=== PATIENT | female | born 1935 | race Caucasian/White ===

== ENCOUNTER → 2017-04-26 | Outpatient (CLI) | payer OTHER ==
[2014-02-07 12:51] VITALS: BP 161/80
[~2017-04-26] MED LIST: NS 100 ML IV 100 ML IV ONE
[2017-04-26 13:00] LABS: CREATININE 0.95 mg/dL (0.55-1.02)
--- NOTE | 2017-04-26 16:39 | CT ---
HISTORY: Right upper quadrant pain Study: CT abdomen and pelvis with IV and oral contrast Comparison: None Technique: Multiple axial images of the abdomen and pelvis were obtained from the lung bases to the pubic symph ysis with the administration of IV contrast. Sagittal and coronal reformations were provided. Findings: There are tiny pleural effusions. There is a tiny pericardial effusion . There is a 2 x 1 centimet er left adrenal the liver spleen and pancreas and right adrenal gland arm unremarkable. There are nu merous small bilateral renal parapelvic cysts. nodule.. The gallbladder and appendix are surgically absent. There is no biliary dilatation.. No significant mesenteric lymphadenopathy or stranding can be observed. No free fluid or free air is seen within the abdomen. No bowel wall thickening or johana wel dilatation is present. There is mild sigmoid diverticular disease. The uterus is normal in size without demonstration of a mass. There is no adnexal mass.. The urinary bladder is unremarkable. T here is severe bilateral hip joint space narrowing with flattening of the femoral heads and severe o steophytes. There is severe degenerative changes of the upper lumbar spine. IMPRESSION: 1. Tiny pleural and pericardial effusions 2. 1 x 2 centimeter left adrenal nodule 3. Severe bilateral hip erosive osteoarthritis Reported By:
== END | disposition home or self-care (01) ==
LOC: RAD 12:28
PROVIDERS: ATTEND Internal Medicine
DX: R10.11 Right upper quadrant pain (principal); K59.09 Other constipation; Z87.19 Personal history of other diseases of the digestive system; J90 Pleural effusion, not elsewhere classified; M16.0 Bilateral primary osteoarthritis of hip; E27.8 Other specified disorders of adrenal gland
CPT/HCPCS: 36415; 74177; 82565; 84520; A4222

== ENCOUNTER → 2017-07-29 | Outpatient (CLI) | payer OTHER ==
[2014-02-07 12:51] VITALS: BP 161/80
[2017-07-29 14:05] LABS: BILIRUBIN,URINE NEGATIVE (NEGATIVE); BLOOD/HEMOGLOBIN,URINE NEGATIVE (NEGATIVE); GLUCOSE, URINE NEGATIVE (NEGATIVE); KETONES,URINE NEGATIVE (NEGATIVE); LEUKOCYTE ESTERASE ,URINE NEGATIVE (NEGATIVE); NITRITES,URINE NEGATIVE (NEGATIVE); PROTEIN,URINE NEGATIVE (NEGATIVE); UROBILINOGEN,URINE NORMAL (NORMAL)
[2017-07-29 14:19] LABS: APPEARANCE,URINE CLEAR (CLEAR); BACTERIA,URINE TRACE /HPF (NEGATIVE); COLOR,URINE YELLOW (YELLOW); RBC,URINE 0-2 /HPF (NEGATIVE); SQUAMOUS EPITHELIAL CELL,UR FEW /HPF (NEGATIVE)
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
== END | disposition home or self-care (01) ==
LOC: RAD 13:45
PROVIDERS: ATTEND Nurse Practitioner
DX: R51 Headache (principal); V89.2XXA Person injured in unspecified motor-vehicle accident, traffic, initial encounter; N39.0 Urinary tract infection, site not specified
CPT/HCPCS: 70450; 81001

== ENCOUNTER → 2017-09-10 | Outpatient (CLI) | payer OTHER ==
[2014-02-07 12:51] VITALS: BP 161/80
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
== END ==
LOC: RAD 15:02
PROVIDERS: ATTEND Internal Medicine
DX: R51 Headache (principal)
CPT/HCPCS: 70450

== ENCOUNTER 2022-06-22 13:17 | Inpatient (IN) ==
--- NOTE | 2022-06-22 13:57 | DR.URIAD ---
HPI Time Seen Time Seen by Provider: 06/22/22 13:57 PCP Primary Care Physician: ALFONSO Complaint Chief Complaint:: EMS STATES PATIENT C/O C/C/C AND COUGHING UP BLOOD. PCP TOLD PATIENT SHE NEED TO BE EVALUATED AND HAVE CHEST XRAY. COVID-19 Coronavirus risk:travel/contact w/high risk person: No Has patient experienced Coronavirus symptoms: No Source History Provided: EMS Mode of Arrival Mode of Arrival: EMS Timing Onset of Chief Complaint: 06/19/22 PMH PMH Past Medical History: Yes Past Medical History: CHF, GERD and Hypertension Past Surgical History: Yes Surgical History: Appendectomy and Cholecystectomy Family History History of Family Medical Conditions: Yes Family Medical History: Cancer Social History Does any household member use tobacco: No Alcohol Use: None Do you use any recreational Drugs:: No Lives With: Family Lives Where: Home Travel Risk Coronavirus risk:travel/contact w/high risk person: No Has patient experienced Coronavirus symptoms: No Infectious screening In the last 2 months have you had wt loss of >10#?: NO Have you had fever, night sweats or hemotysis?: No Have you traveled outside the country in the last 6 months?: No Isolation: Standard PE Vital Signs Vitals: Temperature 99.1 F Pulse Rate 67 Respiratory Rate 27 Blood Pressure [Right Arm] 165/70 Blood Pressure 103/58 O2 Sat by Pulse Oximetry 98 ROR Labs Reviewed Result Diagrams: 06/22/22 15:15 06/22/22 15:15 Laboratory: WBC 10.2 X10^3/uL (3.6-10.0) H 06/22/22 15:15 RBC 3.80 X10^6/uL (3.5-5.4) 06/22/22 15:15 Hgb 12.3 g/dL (12.0-16.0) 06/22/22 15:15 Hct 36.2 % (36.0-47.0) 06/22/22 15:15 MCV 95.3 fL (80.0-100.0) 06/22/22 15:15 MCH 32.2 pg (27.0-34.0) 06/22/22 15:15 MCHC 33.8 g/dL (33.0-35.0) 06/22/22 15:15 RDW 13.4 % (11.6-16.5) 06/22/22 15:15 Plt Count 353 X10^3/uL (150.0-450.0) 06/22/22 15:15 MPV 7.5 fL (7.4-11.0) 06/22/22 15:15 Neut % (Auto) 73.9 % (42.0-75.0) 06/22/22 15:15 Lymph % (Auto) 17.5 % (21.0-51.0) L 06/22/22 15:15 Monona % (Auto) 7.3 % (0.0-13.0) 06/22/22 15:15 Eos % (Auto) 0.6 % (0.9-2.9) L 06/22/22 15:15 Baso % (Auto) 0.7 % (0.2-1.0) 06/22/22 15:15 Neut # (Auto) 7.6 x10^3/uL (2.2-4.8) H 06/22/22 15:15 Lymph # (Auto) 1.8 X10^3/uL (1.3-2.9) 06/22/22 15:15 Monona # (Auto) 0.7 x10^3/uL (0.3-0.8) 06/22/22 15:15 Eos # (Auto) 0.1 x10^3/uL (0.0-0.2) 06/22/22 15:15 Baso # (Auto) 0.1 X10^3/uL (0.0-0.1) 06/22/22 15:15 Absolute Nucleated RBC 0.1 /100WBC 06/22/22 15:15 D-Dimer 1.25 ug/ml (0.0-0.57) H 06/22/22 15:15 Sodium 138 mmol/L (136-145) 06/22/22 15:15 Corrected Sodium 138 mmol/L (136-145) 06/22/22 15:15 Potassium 4.7 mmol/L (3.5-5.1) 06/22/22 15:15 Chloride 101 mmol/L (98-107) 06/22/22 15:15 Carbon Dioxide 30.9 mmol/L (21-32) 06/22/22 15:15 BUN 12 mg/dL (7-18) 06/22/22 15:15 Creatinine 0.93 mg/dL (0.55-1.02) 06/22/22 15:15 Est GFR (MDRD) Af Amer > 60 (>60) 06/22/22 15:15 Est GFR (MDRD) Non-Af > 60 (>60) 06/22/22 15:15 Glucose 114 mg/dL (65-99) H 06/22/22 15:15 Calcium 8.0 mg/dL (8.5-10.1) L 06/22/22 15:15 Corrected Calcium 8.8 mg/dL (8.5-10.1) 06/22/22 15:15 Total Bilirubin 0.20 mg/dL (0.2-1.0) 06/22/22 15:15 AST 17 Units/L (15-37) 06/22/22 15:15 ALT 17 Units/L (12-78) 06/22/22 15:15 Alkaline Phosphatase 98 Units/L (46-116) 06/22/22 15:15 Creatine Kinase 19 Units/L (26-192) L 06/22/22 15:15 Troponin I High Sens 9.3 ng/L (4.0-60.0) 06/22/22 15:15 B-Natriuretic Peptide 90.4 pg/mL (0-79) H 06/22/22 15:15 Total Protein 6.5 g/dL (6.4-8.2) 06/22/22 15:15 Albumin 3.0 g/dL (3.4-5.0) L 06/22/22 15:15 Globulin 3.5 g/dL (2.5-4.5) 06/22/22 15:15 Albumin/Globulin Ratio 0.9 Ratio (1.1-2.1) L 06/22/22 15:15 Opioid Opioid Risk Tool Age (Adria box if 16-45): No History of Preadolescent Sexual Abuse: No Total: 0 Total Score Risk Category: Low Risk Copyright: Lisandro KHAN predicting aberrant behaviors Discharge Plan Discharge Plan Patient Disposition: HOME, SELF-CARE Condition: Stable Prescriptions: No Action furosemide 40 mg tablet 40 mg PO DAILY Label Comments: TAKE ONE TABLET BY MOUTH DAILY Rx Instructions: PT states 20mg 3x week - MWF polyethylene glycol 3350 [Miralax] 17 gram Powder In Packet 17 g PO DAILY hydrocodone-acetaminophen 5-325 mg tablet 1 tab PO QID Label Comments: TAKE ONE TABLET BY MOUTH FOUR TIMES DAILY NEEDED FOR PAIN ondansetron HCl 4 mg tablet 4 mg PO DIRECTED PRN Label Comments: TAKE 1 TABLET BY MOUTH EVERY 6 TO 8 HOURS NEEDED NAUSEA AND VOMITING clonazepam 0.5 mg tablet 0.5 mg PO TID Label Comments: TAKE 1 TABLET BY MOUTH THREE TIMES DAILY NEEDED FOR ANXIETY spironolactone 25 mg tablet 25 mg PO DAILY Label Comments: TAKE ONE TABLET BY MOUTH DAILY Rx Instructions: Pt states 12.5mg 3x a week - MWF ascorbic acid (vitamin C) [Vitamin C] 500 mg Tablet 500 mg PO DAILY pantoprazole 40 mg tablet,delayed release (DR/EC) 40 mg PO DAILY Label Comments: TAKE 1 TABLET BY MOUTH ONCE DAILY (TAKE 30 MINUTES BEFORE BREAKFAST) montelukast 10 mg tablet 10 mg PO DAILY Label Comments: TAKE ONE TABLET BY MOUTH ONCE DAILY ALLERGIES aspirin 81 mg Tablet 81 mg PO DAILY memantine 5 mg tablet 5 mg PO DAILY Label Comments: TAKE ONE TABLET BY MOUTH DAILY metoprolol tartrate 25 mg tablet 25 mg PO BID Label Comments: TAKE 1 TABLET BY MOUTH TWICE DAILY cholecalciferol (vitamin D3) [Vitamin D3] 25 mcg (1,000 unit) Tablet 25 mcg PO DAILY cyanocobalamin (vitamin B-12) [Vitamin B-12] 1,000 mcg Tablet 1,000 mcg PO DAILY Health Concerns: Post Hospitalization: new medications and changes needed to prevent readmission or further decline. Pt educated and given instructions on all concerns. Plan of Treatment: Continue with present treatment and follow up plan. Pt is to keep follow up appointment as instructed and take medications as ordered. Follow ups/Referrals Follow ups/Referrals: Jose Evans [Primary Care Provider] - 3 days Instructions Stand Alone Forms: Precautions for COVID19, [facility], Patient Portal, Social Distancing
[2022-06-22] MEDS ORDERED: NORCO 10/325 TAB PO ONE (14:36)
[2022-06-22] MEDS ORDERED: NORCO 10/325 TAB ONE (14:37)
--- NOTE | 2022-06-22 15:20 | RAD ---
CHEST, 1 VIEWHISTORY: COUGH, CONGESTOINStudy: Single view of the chest.Comparison:NoneFindings:Cardiomegaly bilateral interstitial prominence, possible early alveolar infiltrates. No focal consolidations, pleural effusions or pneumothorax. Osseous structures demonstrate no acute abnormality.IMPRESSION:1. Bilateral interstitial prominence and early alveolar infiltrates. Findings may represent atypical infection, including viral etiologies.Electronically signed by: BRYNN LAGUNAS (Jun 22, 2022 15:18:15)
[2022-06-22 15:29] LABS: BASOPHILS # (AUTO) 0.1 X10^3/uL (0.0-0.1); BASOPHILS % (AUTO) 0.7 % (0.2-1.0); EOSINOPHILS # (AUTO) 0.1 x10^3/uL (0.0-0.2); EOSINOPHILS % (AUTO) 0.6 % (0.9-2.9); HEMATOCRIT 36.2 % (36.0-47.0); HEMOGLOBIN 12.3 g/dL (12.0-16.0); LYMPHOCYTES # (AUTO) 1.8 X10^3/uL (1.3-2.9); LYMPHOCYTES % (AUTO) 17.5 % (21.0-51.0); MEAN CORPUSCULAR HEMOGLOBIN 32.2 pg (27.0-34.0); MEAN CORPUSCULAR HGB CONC 33.8 g/dL (33.0-35.0); MEAN CORPUSCULAR VOLUME 95.3 fL (80.0-100.0); MEAN PLATELET VOLUME 7.5 fL (7.4-11.0); MONOCYTES # (AUTO) 0.7 x10^3/uL (0.3-0.8); MONOCYTES % (AUTO) 7.3 % (0.0-13.0); NEUTROPHILS # (AUTO) 7.6 x10^3/uL (2.2-4.8); NEUTROPHILS % (AUTO) 73.9 % (42.0-75.0); RED CELL DISTRIBUTION WIDTH 13.4 % (11.6-16.5); WHITE BLOOD COUNT 10.2 X10^3/uL (3.6-10.0)
[2022-06-22 15:51] LABS: ALANINE AMINOTRANSFERASE 17 Units/L (12-78); ALKALINE PHOSPHATASE 98 Units/L (46-116); ASPARTATE AMINO TRANSFERASE 17 Units/L (15-37); BLOOD UREA NITROGEN 12 mg/dL (7-18); CARBON DIOXIDE 30.9 mmol/L (21-32); CHLORIDE 101 mmol/L (98-107); COR CA(FOR HYPOALB) 8.8 mg/dL (8.5-10.1); COR NA(FOR HYPERGLY) 138 mmol/L (136-145); CREATININE 0.93 mg/dL (0.55-1.02); SODIUM 138 mmol/L (136-145); TOTAL PROTEIN 6.5 g/dL (6.4-8.2); eGFR NON BLACK RACES > 60 (>60)
[2022-06-22] MEDS ORDERED: KLONOPIN TAB 0.5 MG PO ONE (16:47)
[2022-06-22] MEDS ORDERED: KLONOPIN TAB 0.5 MG ONE (16:49)
--- NOTE | 2022-06-22 17:56 | CT ---
EXAM: CT ABDOMEN AND PELVIS WITHOUT INTRAVENOUS CONTRASTHISTORY: Pain. Coughing up blood.TECHNIQUE: Spiral axial CT images are obtained through the abdomen and pelvis without the administration of intravenous contrast. Additional coronal and sagittal reformatted images are reconstructed.DOSIMETRY: Total DLP 1229.3 mGycm; CTDI 22.7 mGyCOMPARISON: CT abdomen and pelvis dated December 22, 2019.FINDINGS:GASTROINTESTINAL TRACT: There is diffuse distal ileal and colonic diverticulosis, especially severe in the descending colon and sigmoid regions, without CT evidence for acute diverticulitis. No evidence for bowel herniation, bowel obstruction, appendicitis or colitis.GENITOURINARY SYSTEM: There is an approximately 3.6 mm nonobstructing right middle pole renal calculus. The kidneys are unremarkable. There is no ureteral calculus or stigmata of obstructive uropathy. The urinary bladder is grossly unremarkable for a non-dedicated exam.REPRODUCTIVE SYSTEM: The uterus and adnexa appear grossly unremarkable for a CT scan. Consider follow-up dedicated imaging as clinically warranted.CT ABDOMEN: Status post cholecystectomy. Aortoiliac atherosclerotic disease, without aneurysm formation.The liver, spleen, pancreas, adrenal glands and inferior vena cava are within normal limits for a noncontrast CT scan. There is no intra-abdominal or retroperitoneal lymphadenopathy, free fluid, or free air seen. No abdominal herniation is noted.CT PELVIS: No pelvic sidewall or inguinal lymphadenopathy is seen. No inguinal herniation is noted. No free fluid or free air is seen.BONES AND JOINTS: Severe multilevel DDD is seen throughout the distal thoracic and lumbar spine. There is severe osteoarthritis of both hips. Status post ORIF of the left hip/femur with medullary aleksander placement. There is flattening/remodeling of the weightbearing aspect of the left hip in keeping with chronic sequela of AVN in the appropriate clinical setting.LUNG BASES: There is stable cardiomegaly with four-chamber enlargement. There is a stable moderate pericardial effusion (measuring up to 3 cm thick posteriorly). There is severe coronary atherosclerosis (LAD). There is interval appearance of an approximately 3.4 cm x 3.1 cm consolidative masslike lesion in the anterior lateral inferior right middle lobe; DDx includes primary lung neoplasm; cannot rule out focal pneumonia. There is interval appearance of multiple innumerable metastatic nodules scattered throughout the bilateral lower lung goldberg. There is interval appearance of a small loculated left pleural effusion with compressive/consolidative left basilar atelectasis.IMPRESSION:1. Stable cardiomegaly with four-chamber enlargement.2. Stable moderate pericardial effusion (measuring up to 3 cm thick posteriorly).3. Severe coronary atherosclerosis (LAD).4. Interval appearance of an approximately 3.4 cm x 3.1 cm consolidative masslike lesion in the anterior lateral inferior right middle lobe; DDx includes primary lung neoplasm; cannot rule out focal pneumonia.5. Interval appearance of multiple innumerable metastatic nodules scattered throughout the bilateral lower lung goldberg.6. Interval appearance of a small loculated left pleural effusion (possible malignant effusion) with compressive/consolidative left basilar atelectasis.7. Diffuse distal ileal and colonic diverticulosis, especially severe in the descending colon and sigmoid regions, without CT evidence for acute diverticulitis.8. No evidence for bowel herniation, bowel obstruction, appendicitis or colitis.9. Approximately 3.6 mm nonobstructing right middle pole renal calculus; no ureteral stones or obstructive uropathy seen bilateral.10. No free fluid, free air or lymphadenopathy seen.11. Severe multilevel DDD is seen throughout the distal thoracic and lumbar spine.12. Severe osteoarthritis of both hips. Status post ORIF of the left hip/femur with medullary aleksander placement.13. Flattening/remodeling of the weightbearing aspect of the left hip in keeping with chronic sequela of AVN in the appropriate clinical setting.Electronically signed by: Carola Cardona (Jun 22, 2022 17:54:36)
[2022-06-22 18:54] LABS: BILIRUBIN,URINE NEGATIVE (NEGATIVE); BLOOD/HEMOGLOBIN,URINE 2+ (NEGATIVE); GLUCOSE, URINE NEGATIVE (NEGATIVE); KETONES,URINE NEGATIVE (NEGATIVE); LEUKOCYTE ESTERASE ,URINE 3+ (NEGATIVE); NITRITES,URINE NEGATIVE (NEGATIVE); PH,URINE 6.5 (5.0 - 8.0); PROTEIN,URINE NEGATIVE (NEGATIVE); UROBILINOGEN,URINE NORMAL (NORMAL)
[2022-06-22] MEDS ORDERED: PHARMACY CONSULT - LOVENOX XX SCH (19:00)
[2022-06-22 19:02] LABS: APPEARANCE,URINE HAZY (CLEAR); COLOR,URINE PALE YELLOW (YELLOW)
[2022-06-22 19:03] LABS: BACTERIA,URINE 1+ /HPF (NEGATIVE); SQUAMOUS EPITHELIAL CELL,UR RARE /HPF (NEGATIVE)
[2022-06-22 19:06] VITALS: BMI 36.5
[2022-06-22] MEDS: LOVENOX INJ 40 MG SYR SC SCH (20:38)
[2022-06-22] MEDS ORDERED: MAALOX or MYLANTA ONE (21:48)
[2022-06-22] MEDS: MAALOX or MYLANTA PO PRN (21:52)
[2022-06-22] MEDS ORDERED: ROCEPHIN VIAL 1 GRAM ONE (21:54)
[2022-06-22] MEDS ORDERED: ROCEPHIN VIAL 1 GRAM 1 G in NS 100 ML IV + SPIKE MINIBAG* 100 ML IV SCH (22:00)
[2022-06-22] MEDS: NORCO 10/325 TAB PO PRN (22:35)
[2022-06-23 02:39] LABS: BASOPHILS # (AUTO) 0.1 X10^3/uL (0.0-0.1); EOSINOPHILS # (AUTO) 0.1 x10^3/uL (0.0-0.2); EOSINOPHILS % (AUTO) 0.9 % (0.9-2.9); HEMATOCRIT 33.9 % (36.0-47.0); HEMOGLOBIN 11.7 g/dL (12.0-16.0); LYMPHOCYTES # (AUTO) 1.7 X10^3/uL (1.3-2.9); LYMPHOCYTES % (AUTO) 17.8 % (21.0-51.0); MEAN CORPUSCULAR HEMOGLOBIN 32.6 pg (27.0-34.0); MEAN CORPUSCULAR HGB CONC 34.6 g/dL (33.0-35.0); MEAN CORPUSCULAR VOLUME 94.2 fL (80.0-100.0); MEAN PLATELET VOLUME 7.4 fL (7.4-11.0); MONOCYTES # (AUTO) 0.9 x10^3/uL (0.3-0.8); MONOCYTES % (AUTO) 9.3 % (0.0-13.0); NEUTROPHILS # (AUTO) 6.8 x10^3/uL (2.2-4.8); RED CELL DISTRIBUTION WIDTH 13.6 % (11.6-16.5); WHITE BLOOD COUNT 9.6 X10^3/uL (3.6-10.0)
[2022-06-23 02:51] LABS: ALANINE AMINOTRANSFERASE 15 Units/L (12-78); ALBUMIN 2.7 g/dL (3.4-5.0); ALKALINE PHOSPHATASE 93 Units/L (46-116); ASPARTATE AMINO TRANSFERASE 16 Units/L (15-37); BLOOD UREA NITROGEN 11 mg/dL (7-18); CALCIUM 7.8 mg/dL (8.5-10.1); CARBON DIOXIDE 30.7 mmol/L (21-32); CHLORIDE 103 mmol/L (98-107); COR CA(FOR HYPOALB) 8.8 mg/dL (8.5-10.1); COR NA(FOR HYPERGLY) 139 mmol/L (136-145); CREATININE 0.84 mg/dL (0.55-1.02); SODIUM 138 mmol/L (136-145); eGFR NON BLACK RACES > 60 (>60)
[2022-06-23] MEDS: NORCO 10/325 TAB PO PRN ×3 (04:43→20:20)
[2022-06-23] MEDS ORDERED: PREPARATION H OINT ONE (05:30)
[2022-06-23] MEDS: PREPARATION H OINT RECTAL PRN ×2 (05:48→15:05)
--- NOTE | 2022-06-23 07:15 | RAD ---
HISTORYChest painSTUDYChest AP [id number]/22/2022 chest x-ray and CT abdomen pelvisFINDINGSThe heart remains markedly enlarged. Some of the cardiomegaly is due to pericardial effusion better visualized on the recent CT abdomen pelvis. No congestive heart failure is noted. There is new alveolar infiltrate peripherally in the right lung base most consistent with pneumonia. There is a left pleural effusion present. Bony thorax is unremarkable.IMPRESSIONNew peripheral right basilar alveolar lung infiltrate most consistent with pneumoniaLeft pleural effusion unchangedCardiomegaly partially due to a pericardial effusion which is better demonstrated on the recent CT abdomen pelvis. No congestive heart failure identifiedElectronically signed by: MARYBETH SMITH (Jun 23, 2022 07:13:43)
[2022-06-23] MEDS: MAALOX or MYLANTA PO PRN ×2 (09:18→21:54)
[2022-06-23] MEDS: LOVENOX INJ 40 MG SYR SC SCH (09:22)
[2022-06-23] MEDS: PULMICORT NEB TX 0.5 MG NEB SCH ×2 (09:30→20:37)
[2022-06-23] MEDS: LASIX IVP SCH (10:56)
[2022-06-23] MEDS: VITAMIN B-12 PO SCH (10:56)
[2022-06-23] MEDS: ASPIRIN EC 81 MG PO SCH (10:56)
[2022-06-23] MEDS: VITAMIN D3 25 mcg (1,000 UNITS) PO SCH (10:56)
[2022-06-23] MEDS: KLONOPIN TAB 0.5 MG PO SCH ×3 (10:56→20:10)
[2022-06-23] MEDS: VITAMIN C PO SCH (10:57)
[2022-06-23] MEDS: XOPENEX 1.25 MG/3 ML NEBULE NEB SCH ×2 (11:52→16:50)
[2022-06-23] MEDS ORDERED: TUCKS MEDICATED PAD TOP PRN (14:00)
[2022-06-23] MEDS ORDERED: NS 250 ML IV 250 ML IV ONE (14:58)
[2022-06-23] MEDS: ROCEPHIN VIAL 1 GRAM 1 G in NS 100 ML IV 100 ML IV SCH (15:00)
--- NOTE | 2022-06-23 15:05 | CT ---
HISTORYSUSPECTED METASTATIC DISEASESTUDYCHEST WITH [id number]/21/2020TECHNIQUEAxial images through the chest were performed with contrast. CT scan was performed following ALARA (As low as Reasonably Achievable).Coronal and Sagittal reformatted images were performed.FINDINGSThe thyroid gland is no enlarged. There is no axillary adenopathy, there is and small left pleural effusion, there is also and small pericardial effusion. No mediastinal adenopathyThere is again seen a left adrenal nodule measuring approximately 2.8 x 1.3 centimeter nonspecific, no right adrenal masses. Status post cholecystectomy, some parapelvic cysts in the right kidney.There is fatty changes of the pancreas, there are some low attenuation areas in the duodenum could represent fluid from peristalsis.The spleen is no enlarged. No focal enhancing lesion in the liver is seenthe ascending aorta measures approximately 3.2 centimetersThere is atelectasis at the left lower lobe. There are multiple new lung nodules, the largest is seen in the right lower lobe laterally measuring approximately 3.4 centimeters, in the left the largest is seen in the superior segment of the left lower lobe measuring approximately 1.1 centimeters. There are bilateral multiple lung nodules ranging from 6 to 4 millimeters consistent with metastatic disease.Bone windows no evidence of aggressive bone lesions, no acute fractures, there is multilevel degenerative disc disease.IMPRESSIONMultiple bilateral lung nodules with the largest in the right lower lobe consider lung metastasisSmall left effusion. Trace pericardial effusionStable left adrenal nodule.Electronically signed by: Li Velasquez (Jun 23, 2022 15:03:30)
[2022-06-23] MEDS ORDERED: SALINE 0.9% 3 ML NEB TX ONE (20:14)
[2022-06-23] MEDS: SINGULAIR TAB 10 MG PO SCH (21:54)
[2022-06-23] MEDS: MIRALAX POWDER (1 DOSE 17 G) PO SCH (21:54)
[2022-06-24] MEDS: XOPENEX 1.25 MG/3 ML NEBULE NEB SCH ×5 (00:58→18:24)
[2022-06-24 05:16] LABS: BASOPHILS # (AUTO) 0.1 X10^3/uL (0.0-0.1); BASOPHILS % (AUTO) 1.1 % (0.2-1.0); EOSINOPHILS # (AUTO) 0.1 x10^3/uL (0.0-0.2); EOSINOPHILS % (AUTO) 1.1 % (0.9-2.9); HEMATOCRIT 34.7 % (36.0-47.0); HEMOGLOBIN 11.8 g/dL (12.0-16.0); LYMPHOCYTES # (AUTO) 1.6 X10^3/uL (1.3-2.9); LYMPHOCYTES % (AUTO) 17.9 % (21.0-51.0); MEAN CORPUSCULAR HEMOGLOBIN 32.2 pg (27.0-34.0); MEAN CORPUSCULAR VOLUME 94.5 fL (80.0-100.0); MEAN PLATELET VOLUME 7.7 fL (7.4-11.0); MONOCYTES # (AUTO) 0.9 x10^3/uL (0.3-0.8); NEUTROPHILS # (AUTO) 6.4 x10^3/uL (2.2-4.8); NEUTROPHILS % (AUTO) 69.9 % (42.0-75.0); RED BLOOD COUNT 3.67 X10^6/uL (3.5-5.4); RED CELL DISTRIBUTION WIDTH 13.8 % (11.6-16.5); WHITE BLOOD COUNT 9.2 X10^3/uL (3.6-10.0)
[2022-06-24 05:24] LABS: ALANINE AMINOTRANSFERASE 14 Units/L (12-78); ALBUMIN 2.9 g/dL (3.4-5.0); ALKALINE PHOSPHATASE 97 Units/L (46-116); ASPARTATE AMINO TRANSFERASE 17 Units/L (15-37); BLOOD UREA NITROGEN 9 mg/dL (7-18); CALCIUM 8.1 mg/dL (8.5-10.1); CARBON DIOXIDE 31.6 mmol/L (21-32); CHLORIDE 100 mmol/L (98-107); COR NA(FOR HYPERGLY) 137 mmol/L (136-145); SODIUM 137 mmol/L (136-145); TOTAL PROTEIN 6.5 g/dL (6.4-8.2); eGFR NON BLACK RACES > 60 (>60)
--- NOTE | 2022-06-24 06:19 | RAD ---
HISTORYShortness of breath, generalized weaknessSTUDYChest AP [id number]/23/2022 chest x-ray and CT chestFINDINGSHeart remains markedly enlarged. This is partially due to pericardial effusion which is visible on the recent chest CT. No congestive heart failure is noted. There is a density peripherally in the right lower lobe felt to represent a lung infiltrate on the prior examination. It now has a more masslike appearance and proved to be a 3.4 cm mass on the recent chest CT. Multiple other smaller pulmonary nodules were visualized on the chest CT which are not visible on plain film. Metastatic disease is likely. Follow-up should be with CT. Bony thorax is unremarkable.IMPRESSIONCardiomegaly without congestive heart failure. The cardiomegaly is in part due to a pericardial effusion which was visualized on recent CT.Previously noted peripheral right basilar lung density which was felt on the prior examination to represent infiltrate has a more masslike appearance and corresponds to a 3.4 cm mass visible on chest CTThe multiple bilateral smaller pulmonary nodules visible on CT are not yet visible on plain film. Follow-up should be with CT.Electronically signed by: MARYBETH SMITH (Jun 24, 2022 06:17:28)
[2022-06-24] MEDS: KLONOPIN TAB 0.5 MG PO SCH ×3 (06:30→21:40)
[2022-06-24] MEDS ORDERED: MILK OF MAGNESIA PO PRN (08:34)
[2022-06-24] MEDS ORDERED: ZOFRAN INJ 4 MG VIAL IVP PRN (08:34)
[2022-06-24] MEDS: NORCO 10/325 TAB PO PRN ×2 (08:50→21:40)
[2022-06-24] MEDS: PULMICORT NEB TX 0.5 MG NEB SCH ×2 (08:55→20:00)
[2022-06-24] MEDS ORDERED: ALDACTONE TAB 25 MG PO SCH (09:00)
[2022-06-24] MEDS: ASPIRIN EC 81 MG PO SCH (09:08)
[2022-06-24] MEDS: PROTONIX TAB 40 MG PO SCH (09:09)
[2022-06-24] MEDS: LOVENOX INJ 40 MG SYR SC SCH (09:09)
[2022-06-24] MEDS: VITAMIN D3 25 mcg (1,000 UNITS) PO SCH (09:09)
[2022-06-24] MEDS: VITAMIN C PO SCH (09:09)
[2022-06-24] MEDS: COLACE CAP 100 MG PO PRN (09:10)
[2022-06-24] MEDS: MAALOX or MYLANTA PO PRN ×2 (09:10→21:54)
[2022-06-24] MEDS: VITAMIN B-12 PO SCH (09:18)
[2022-06-24] MEDS: LASIX IVP SCH (09:41)
--- NOTE | 2022-06-24 10:53 | DR.H&P ---
H&P - History & Physical for Day of: H&P Date: 06/22/22 - Chief Complaint Chief Complaint: COUGH, CONGESTION, COUGHING UP BLOOD, WEAKNESS, EPIGASTRIC PAIN - History of Present Illness History of Present Illness: IS A 87 YEAR OLD PATIENT OF OURS. SHE PRESENTED TO THE ER VIA EMS WITH COMPLAINTS OF COUGH AND CONGESTION. SHE REPORTS THAT SHE STARTED COUGHING UP BLOOD ONE DAY PRIOR. SHE ALSO REPORTS EPIGASTRIC ABDOMINAL PAIN. SHE HAS BEEN TAKING ROBITUSSIN DM WITHOUT IMPROVEMENT IN SYMPTOMS. HER PMH INCLUDES: CHF, GERD, HTN, APPENDECTOMY, AND CHOLECYSTECTOMY. ON ARRIVAL, HER VITALS WERE 99.1-58-22-99%-137/64. LABS WERE OBTAINED. WBC 10.2, RBC 3.80, HGB 12.3, HCT 36.2, D-DIMER 1.25, SODIUM 138, POTASSIUM 4.7, CHLORIDE 101, CARBON DIOXIDE 30.9, BUN 12, CREATININE 0.93, GLUCOSE 114, CALCIUM 8.0, AST 17, ALT 17, ALK PHOS 98, CREATINE KINASE 19, TROPONIN 9.3, BNP 90.4, TOTAL PROTEIN 6.5, ALBUMIN 3.0. URINALYSIS WAS OBTAINED AND REVEALED: WBC 30-50, RBC 3-5, LEUKOCYTES 3+, BACTERIA 1+, BLOOD 2+. URINE AND SPUTUM CULTURES WERE SET UP. COVID, INFLUENZA, AND RSV WAS NEGATIVE. A CHEST XRAY WAS OBTAINED AND REVEALED: 1. Bilateral interstitial prominence and early alveolar infiltrates. Findings may represent atypical infection, including viral etiologies. EKG REVEALED: SINUS BRADYCARDIA WITH HR 58. AN ABDOMEN/PELVIS CT WITHOUT CONTRAST WAS OBTAINED. IT REVEALED: 1. Stable cardiomegaly with four-chamber enlargement. 2. Stable moderate pericardial effusion (measuring up to 3 cm thick posteriorly). 3. Severe coronary atherosclerosis (LAD). 4. Interval appearance of an approximately 3.4 cm x 3.1 cm consolidative masslike lesion in the anterior lateral inferior right middle lobe; DDx includes primary lung neoplasm; cannot rule out focal pneumonia. 5. Interval appearance of multiple innumerable metastatic nodules scattered throughout the bilateral lower lung goldberg. 6. Interval appearance of a small loculated left pleural effusion (possible malignant effusion) with compressive/consolidative left basilar atelectasis. 7. Diffuse distal ileal and colonic diverticulosis, especially severe in the descending colon and sigmoid regions, without CT evidence for acute diverticulitis. 8. No evidence for bowel herniation, bowel obstruction, appendicitis or colitis. 9. Approximately 3.6 mm nonobstructing right middle pole renal calculus; no ureteral stones or obstructive uropathy seen bilateral. 10. No free fluid, free air or lymphadenopathy seen. 11. Severe multilevel DDD is seen throughout the distal thoracic and lumbar spine. 12. Severe osteoarthritis of both hips. Status post ORIF of the left hip/femur with medullary aleksander placement. 13. Flattening/remodeling of the weightbearing aspect of the left hip in keeping with chronic sequela of AVN in the appropriate clinical setting. IN THE ER, SHE WAS GIVEN ROCEPHIN 1G IV X 1 DOSE, KLONOPIN 0.5MG PO X 1, NORCO 10/325MG PO X 1 DOSE. SHE WAS ADMITTED TO THE HOSPTAIL FOR FURTHER EVALUATION AND TREATMENT OF PNEUMONIA, LUNG MASS, AND URINARY TRACT INFECTION. SHE WAS STARTED ON ROCEPHIN 1G IV DAILY, PULMICORT NEBS BID, XOPENEX NEBS Q6H, LOVENOX 40MG SC DAILY, ZOFRAN 4MG IV Q6H, MAALOX 30ML PO Q4H PRN, COLACE 200MG PO Q12H PRN, MILK OF MAGNESIA 30ML PO Q12H PRN, AND HIS HOME MEDICATIONS WERE RESUMED. WE WILL OBTAIN A CHEST CT WITH CONTRAST TO GET A BETTER LOOK AT THE LUNG NODULES. OTHERWISE, WE WILL FOLLOW-UP WITH AM LABS AND CONTINUE TO MONITOR. TIME SPENT ON CLINICAL ASSESSMENT, REVIWING LABS AND IMAGING, DECISION MAKING, AND DOCUMENTATION GREATER THAN 75 MINUTES. - Past Medical History Past Medical History: Hypertension, GERD, CHF - Past Surgical History Surgical History: Appendectomy, Cholecystectomy - Family History Family Medical History: Cancer - Social History Does patient currently use any type of tobacco product: No Have you used tobacco products in the last 12 months: No Type of Tobacco Use: None Does any household member use tobacco: No Alcohol Use: None Drug Use: None - Medications Home Medications: ciprofloxacin [From Cipro] Allergy (Verified 04/10/21 12:24) codeine Allergy (Verified 04/10/21 12:24) doxycycline Allergy (Verified 04/10/21 12:24) promethazine [From Phenergan] Allergy (Verified 04/10/21 12:24) Sulfa (Sulfonamide Antibiotics) [SULFA] Allergy (Verified 04/10/21 12:24) CONTINUE taking the following medications hydrocodone 10 mg-acetaminophen 325 mg tablet 1 tab PO QID pain 06/22/22 [History] pantoprazole 20 mg tablet,delayed release (Protonix) 10 mg PO DAILY 06/22/22 [History] spironolactone 25 mg tablet (Aldactone) 12.5 mg PO DIRECTED 06/22/22 [History] - Review of Systems Constitutional: Weakness Eyes: No Symptoms Reported ENT: No Symptoms Reported Respiratory: Cough, Shortness of Breath, Hemoptysis, SOB with Excertion Cardiovascular: No Symptoms Reported Gastrointestinal: Nausea, Abdominal Pain Genitourinary: No Symptoms Reported Musculoskeletal: No Symptoms Reported Skin: No Symptoms Reported Neurological: Weakness - Physical Exam Vital Signs: Temperature 98.3 F Pulse Rate 100 Respiratory Rate 47 Blood Pressure [Right Arm] 165/70 Blood Pressure 155/75 O2 Sat by Pulse Oximetry 99 Oriented: Normal Eyes: Normal Ear: Normal Nose: Normal Throat: Normal Respiratory: Diminished Throughout Cardiovascular: Bradycardia : Normal Auscultation: Bowel Sounds: Normal Palpation: Normal Tenderness: Normal Skin: Normal Musculoskeletal: Normal Psychiatric: Normal Mood Description: Calm Affect: Normal Speech Pattern: Clear - Assessment/Plan (1) Pneumonia Qualifiers: Laterality: bilateral Lung location: unspecified part of lung Status: Acute Plan: ADMIT, ROCEPHIN 1G IV DAILY, PULMICORT NEBS BID, XOPENEX NEBS Q6H, LOVENOX 40MG SC DAILY, ZOFRAN 4MG IV Q6H, MAALOX 30ML PO Q4H PRN, COLACE 200MG PO Q12H PRN, MILK OF MAGNESIA 30ML PO Q12H PRN, AND HIS HOME MEDICATIONS WERE RESUMED. OBTAIN CHEST CT WITH CONTRAST (2) Lung nodules Status: Acute (3) Urinary tract infection Qualifiers: Urinary tract infection type: acute cystitis Hematuria presence: with hematuria Qualified Code(s): N30.01 - Acute cystitis with hematuria Status: Acute - Allergies Allergies/Adverse Reactions: Allergies Allergy/AdvReac Type Severity Reaction Status Date / Time ciprofloxacin [From Cipro] Allergy Verified 04/10/21 12:24 codeine Allergy Verified 04/10/21 12:24 doxycycline Allergy Verified 04/10/21 12:24 promethazine [From Phenergan] Allergy Verified 04/10/21 12:24 Sulfa (Sulfonamide Allergy Verified 04/10/21 12:24 Antibiotics) [SULFA]
--- NOTE | 2022-06-24 12:42 | CT ---
CT head without contrastIndication: Altered mental status. History metastatic disease.TECHNIQUEAxial images from the skullbase to the vertex without contrast. Coronal and sagittal reformats provided.COMPARISONChest CT from June 23, [address] abdomen and pelvis from June 22, 2022.FINDINGSScattered hyperdense foci seen throughout the brain are most compatible with metastatic disease, largest in the right occipital lobe with surrounding mild vasogenic edema measuring 1.3 x 1.5 cm on axial image 15. Vague hypodensity in the left temporal lobe/basal ganglia measures 1.1 cm in maximum dimension on axial image 16, near the caudate nucleus. Left temporoparietal hyperintensities are noted on axial image 23, measuring 5 mm and axial image 25 measuring 6 mm. The right frontoparietal lesion measures 9 mm on axial image 25.There is no extra-axial fluid collection. There is mild atrophy and microangiopathy.No osseous lesions seen. Visualized paranasal sinuses and mastoid air cells are clearIMPRESSION1. Scattered bilateral cerebral hyperdensities, compatible with hyperdense metastases or hemorrhagic metastatic disease. Recommend MR brain follow-up with and without contrast to further evaluate.2. Cerebral atrophy and microangiopathy.Electronically signed by: KELSY AMAYA (Jun 24, 2022 12:40:44)
[2022-06-24] MEDS: ROCEPHIN VIAL 1 GRAM 1 G in NS 100 ML IV 100 ML IV SCH (13:51)
[2022-06-24] MEDS: SINGULAIR TAB 10 MG PO SCH (21:40)
[2022-06-24] MEDS: MIRALAX POWDER (1 DOSE 17 G) PO SCH (21:53)
[2022-06-25] MEDS: XOPENEX 1.25 MG/3 ML NEBULE NEB SCH ×4 (00:15→17:02)
[2022-06-25] MEDS: MAALOX or MYLANTA PO PRN ×2 (02:31→20:15)
[2022-06-25] MEDS: PREPARATION H OINT RECTAL PRN (02:31)
[2022-06-25 05:32] LABS: BASOPHILS # (AUTO) 0.1 X10^3/uL (0.0-0.1); BASOPHILS % (AUTO) 0.5 % (0.2-1.0); EOSINOPHILS % (AUTO) 0.4 % (0.9-2.9); HEMATOCRIT 33.6 % (36.0-47.0); HEMOGLOBIN 11.6 g/dL (12.0-16.0); LYMPHOCYTES # (AUTO) 1.2 X10^3/uL (1.3-2.9); LYMPHOCYTES % (AUTO) 11.4 % (21.0-51.0); MEAN CORPUSCULAR HEMOGLOBIN 32.3 pg (27.0-34.0); MEAN CORPUSCULAR HGB CONC 34.4 g/dL (33.0-35.0); MEAN CORPUSCULAR VOLUME 93.9 fL (80.0-100.0); MEAN PLATELET VOLUME 7.3 fL (7.4-11.0); MONOCYTES % (AUTO) 9.5 % (0.0-13.0); NEUTROPHILS # (AUTO) 7.9 x10^3/uL (2.2-4.8); NEUTROPHILS % (AUTO) 78.2 % (42.0-75.0); RED BLOOD COUNT 3.58 X10^6/uL (3.5-5.4); RED CELL DISTRIBUTION WIDTH 13.8 % (11.6-16.5); WHITE BLOOD COUNT 10.1 X10^3/uL (3.6-10.0)
[2022-06-25 05:44] LABS: ALANINE AMINOTRANSFERASE 13 Units/L (12-78); ALBUMIN 2.8 g/dL (3.4-5.0); ALKALINE PHOSPHATASE 95 Units/L (46-116); ASPARTATE AMINO TRANSFERASE 19 Units/L (15-37); BLOOD UREA NITROGEN 6 mg/dL (7-18); CARBON DIOXIDE 33.7 mmol/L (21-32); CHLORIDE 98 mmol/L (98-107); COR NA(FOR HYPERGLY) 135 mmol/L (136-145); CREATININE 0.84 mg/dL (0.55-1.02); SODIUM 134 mmol/L (136-145); TOTAL PROTEIN 6.4 g/dL (6.4-8.2); eGFR NON BLACK RACES > 60 (>60)
[2022-06-25] MEDS: NORCO 10/325 TAB PO PRN ×3 (06:08→20:14)
[2022-06-25] MEDS: KLONOPIN TAB 0.5 MG PO SCH ×3 (06:08→21:00)
[2022-06-25] MEDS: ASPIRIN EC 81 MG PO SCH (07:59)
[2022-06-25] MEDS: LASIX IVP SCH (07:59)
[2022-06-25] MEDS: PROTONIX TAB 40 MG PO SCH (08:00)
[2022-06-25] MEDS: LOVENOX INJ 40 MG SYR SC SCH (08:00)
[2022-06-25] MEDS: VITAMIN C PO SCH (08:00)
[2022-06-25] MEDS: VITAMIN B-12 PO SCH (08:00)
[2022-06-25] MEDS: VITAMIN D3 25 mcg (1,000 UNITS) PO SCH (08:01)
--- NOTE | 2022-06-25 08:09 | RAD ---
HISTORYCHEST PAIN; SOBSTUDYCHEST, 1 [id number] mass in the lower lateral right lung measures roughly 5 cm by radiography. Appears slightly smaller on the prior CT.Small left pleural effusion is present associated with atelectasis. I do not believe these are changed from the CT 06/23/2022.Upper lungs clear. No pneumothorax or new finding.Cardiomegaly is present.There are degenerative changes in the left shoulder. [EKG leads are noted. ]IMPRESSION1. No short interval changeElectronically signed by: Murray Sims (Jun 25, 2022 08:07:57)
[2022-06-25] MEDS: PULMICORT NEB TX 0.5 MG NEB SCH ×2 (08:38→21:00)
[2022-06-25] MEDS ORDERED: TORADOL 30 MG VIAL IVP PRN (11:58)
--- NOTE | 2022-06-25 13:41 | PCM.PROG ---
Progress Note - Progress Note for Day of Date of Exam: 06/24/22 - Subjective Subjective: IS CURRENTLY BEING TREATED FOR PNEUMONIA, UTI, AND MULTIPLE LUNG NODULES. SHE HAS A PMH OF CHF, GERD, KRISTIN, AND HTN. TODAY, SHE IS ALERT, LYING IN BED ON MORNING ROUNDS. SHE CONTINUES WITH COMPLAINTS OF A COUGH AND GENERALIZED WEAKNESS. ON EXAMINATION, HEART IS REGULAR IN RATE AND RHYTHM. BILATERAL LUNGS ARE NOTED WITH DIMINISHED LUNG SOUNDS THROUGHOUT. ABDOMEN IS ROUND, SOFT, AND NON-TENDER WITH NORMAL BOWEL SOUNDS NOTED IN ALL QUADRANTS. TRACE LOWER EXTREMITY EDEMA NOTED. HER VITALS THIS MORNING ARE: 98.7-91-21-100%-155/75. SHE IS CURRENTLY UTILIZING OXYGEN VIA NASAL CANNULA AT 2 LPM. LABS WERE OBTAINED THIS MORNING. WBC 9.2, RBC 3.67, HGB 11.8, HCT 34.7, PLT COUNT 316, SODIUM 137, POTASSIUM 4.1, BUN 9, CREATININE 0.90, GLUCOSE 111, CALCIUM 8.1, AST 17, ALT 14, ALK PHOS 97, TOTAL PROTEIN 6.5, ALBUMIN 2.9. URINE AND SPUTUM CULTURES ARE PENDING. A CHEST CT WITH CONTRAST WAS OBTAINED YESTERDAY. IT REVEALED: Multiple bilateral lung nodules with the largest in the right lower lobe consider lung metastasis. Small left effusion. Trace pericardial effusion. Stable left adrenal nodule. A CHEST XRAY WAS REPEATED THIS MORNING AND REVEALED: Cardiomegaly without congestive heart failure. The cardiomegaly is in part due to a pericardial effusion which was visualized on recent CT. Previously noted peripheral right basilar lung density which was felt on the prior examination to represent infiltrate has a more masslike appearance and corresponds to a 3.4 cm mass visible on chest CT. The multiple bilateral smaller pulmonary nodules visible on CT are not yet visible on plain film. SHE IS CURRENTLY RECEIVING ROCEPHIN 1G IV DAILY, PULMICORT NEBS BID, XOPENEX NEBS Q6H, LOVENOX 40MG SC DAILY, ZOFRAN 4MG IV Q6H, MAALOX 30ML PO Q4H PRN, COLACE 200MG PO Q12H PRN, MILK OF MAGNESIA 30ML PO Q12H PRN, AND HIS HOME MEDICATIONS WERE RESUMED. WE SPOKE WITH PATIENTS FAMILY MEMBERS AT LENGTH REGARDING THE CT FINDINGS. TODAY, WE WILL OBTAIN A BRAIN CT TO RULE OUT METS TO BRAIN. OTHERWISE, WE WILL CONTINUE WITH CURRENT PLAN OF CARE TODAY. WE WILL FOLLOW-UP WITH AM LABS AND CONTINUE TO MONITOR. TIME SPENT ON CLINICAL ASSESSMENT, REVIWING LABS AND IMAGING, DECISION MAKING, AND DOCUMENTATION GREATER THAN 45 MINUTES. - Past Medical Family Social History Past Med/Fam/Surg Hx: No changes since H&P Allergies: Allergies ciprofloxacin [From Cipro] Allergy (Verified 04/10/21 12:24) codeine Allergy (Verified 04/10/21 12:24) doxycycline Allergy (Verified 04/10/21 12:24) promethazine [From Phenergan] Allergy (Verified 04/10/21 12:24) Sulfa (Sulfonamide Antibiotics) [SULFA] Allergy (Verified 04/10/21 12:24) - Review of Systems ROS: No change since H&P - Vital Signs and I&O's Vital Signs: Temperature 98.2 F Pulse Rate 87 Respiratory Rate 22 Blood Pressure [Right Arm] 165/70 Blood Pressure 135/60 O2 Sat by Pulse Oximetry 100 Intake and Output: Intake & Output 06/23/22 06/24/22 06/25/22 06/26/22 11:59 11:59 11:59 11:59 Intake Total 1210 / 1210 930 / 930 1532 / 1532 Output Total 500 / 500 1850 / 1850 1920 / 1920 Balance 710 / 710 -920 / -920 -388 / -388 - Physical Exam Oriented: Normal Eyes: Normal Ear: Normal Nose: Normal Throat: Normal Respiratory: Generalized, Diminished Cardiovascular: Normal : Normal Auscultation: Bowel Sounds: Normal Palpation: Normal Tenderness: Normal Skin: Normal Musculoskeletal: Normal Psychiatric: Normal Mood Description: Calm Affect: Normal Speech Pattern: Clear - Laboratory and Diagnostics Result Diagrams: 06/25/22 05:05 06/25/22 05:05 Labs: 06/23/22 10:25 Sputum - Expectorated Sputum Sputum Culture - Final 06/23/22 10:25 Sputum - Expectorated Sputum - Final 06/22/22 18:35 Urine,Catheterized Urine Culture - Final Escherichia Coli Laboratory WBC 10.1 X10^3/uL (3.6-10.0) H 06/25/22 05:05 RBC 3.58 X10^6/uL (3.5-5.4) 06/25/22 05:05 Hgb 11.6 g/dL (12.0-16.0) L 06/25/22 05:05 Hct 33.6 % (36.0-47.0) L 06/25/22 05:05 MCV 93.9 fL (80.0-100.0) 06/25/22 05:05 MCH 32.3 pg (27.0-34.0) 06/25/22 05:05 MCHC 34.4 g/dL (33.0-35.0) 06/25/22 05:05 RDW 13.8 % (11.6-16.5) 06/25/22 05:05 Plt Count 288 X10^3/uL (150.0-450.0) 06/25/22 05:05 MPV 7.3 fL (7.4-11.0) L 06/25/22 05:05 Neut % (Auto) 78.2 % (42.0-75.0) H 06/25/22 05:05 Lymph % (Auto) 11.4 % (21.0-51.0) L 06/25/22 05:05 [place] % (Auto) 9.5 % (0.0-13.0) 06/25/22 05:05 Eos % (Auto) 0.4 % (0.9-2.9) L 06/25/22 05:05 Baso % (Auto) 0.5 % (0.2-1.0) 06/25/22 05:05 Neut # (Auto) 7.9 x10^3/uL (2.2-4.8) H 06/25/22 05:05 Lymph # (Auto) 1.2 X10^3/uL (1.3-2.9) L 06/25/22 05:05 [place] # (Auto) 1.0 x10^3/uL (0.3-0.8) H 06/25/22 05:05 Eos # (Auto) 0.0 x10^3/uL (0.0-0.2) 06/25/22 05:05 Baso # (Auto) 0.1 X10^3/uL (0.0-0.1) 06/25/22 05:05 Absolute Nucleated RBC 0.0 /100WBC 06/25/22 05:05 D-Dimer 1.25 ug/ml (0.0-0.57) H 06/22/22 15:15 Sodium 134 mmol/L (136-145) L 06/25/22 05:05 Corrected Sodium 135 mmol/L (136-145) L 06/25/22 05:05 Potassium 4.1 mmol/L (3.5-5.1) 06/25/22 05:05 Chloride 98 mmol/L (98-107) 06/25/22 05:05 Carbon Dioxide 33.7 mmol/L (21-32) H 06/25/22 05:05 BUN 6 mg/dL (7-18) L 06/25/22 05:05 Creatinine 0.84 mg/dL (0.55-1.02) 06/25/22 05:05 Est GFR (MDRD) Af Amer > 60 (>60) 06/25/22 05:05 Est GFR (MDRD) Non-Af > 60 (>60) 06/25/22 05:05 Glucose 135 mg/dL (65-99) H 06/25/22 05:05 Calcium 8.0 mg/dL (8.5-10.1) L 06/25/22 05:05 Corrected Calcium 9.0 mg/dL (8.5-10.1) 06/25/22 05:05 Total Bilirubin 0.30 mg/dL (0.2-1.0) 06/25/22 05:05 AST 19 Units/L (15-37) 06/25/22 05:05 ALT 13 Units/L (12-78) 06/25/22 05:05 Alkaline Phosphatase 95 Units/L (46-116) 06/25/22 05:05 Creatine Kinase 16 Units/L (26-192) L 06/23/22 02:24 Troponin I High Sens 9.0 ng/L (4.0-60.0) 06/23/22 02:24 B-Natriuretic Peptide 90.4 pg/mL (0-79) H 06/22/22 15:15 Total Protein 6.4 g/dL (6.4-8.2) 06/25/22 05:05 Albumin 2.8 g/dL (3.4-5.0) L 06/25/22 05:05 Globulin 3.6 g/dL (2.5-4.5) 06/25/22 05:05 Albumin/Globulin Ratio 0.8 Ratio (1.1-2.1) L 06/25/22 05:05 Specimen Type Catherized urine 06/22/22 18:35 Urine Color Pale yellow (YELLOW) 06/22/22 18:35 Urine Appearance Hazy (CLEAR) 06/22/22 18:35 Urine pH 6.5 (5.0 - 8.0) 06/22/22 18:35 Ur Specific [place] 1.010 (1.000-1.030) 06/22/22 18:35 Urine Protein Negative (NEGATIVE) 06/22/22 18:35 Urine Glucose (UA) Negative (NEGATIVE) 06/22/22 18:35 Urine Ketones Negative (NEGATIVE) 06/22/22 18:35 Urine Blood 2+ (NEGATIVE) 06/22/22 18:35 Urine Nitrite Negative (NEGATIVE) 06/22/22 18:35 Urine Bilirubin Negative (NEGATIVE) 06/22/22 18:35 Urine Urobilinogen Normal (NORMAL) 06/22/22 18:35 Ur Leukocyte Esterase 3+ (NEGATIVE) 06/22/22 18:35 Urine RBC 3-5 /HPF (0-3) A 06/22/22 18:35 Urine WBC 30-50 /HPF (0-5) A 06/22/22 18:35 Ur Squamous Epith Cells Rare /HPF (NEGATIVE) 06/22/22 18:35 Urine Bacteria 1+ /HPF (NEGATIVE) 06/22/22 18:35 Urine Mucus Few /HPF (NEGATIVE) 06/22/22 18:35 Ur Culture Indicated? Yes/culture set up 06/22/22 18:35 SARS-CoV-2 (PCR) Negative (NEGATIVE) 06/22/22 16:44 Influenza Type A (PCR) Negative (NEGATIVE) 06/22/22 16:44 Influenza Type B (PCR) Negative (NEGATIVE) 06/22/22 16:44 RSV (PCR) Negative (NEGATIVE) 06/22/22 16:44 - Plan (1) Pneumonia Status: Acute Qualifiers: Laterality: bilateral Lung location: unspecified part of lung Plan: ROCEPHIN 1G IV DAILY, PULMICORT NEBS BID, XOPENEX NEBS Q6H, LOVENOX 40MG SC DAILY, ZOFRAN 4MG IV Q6H, MAALOX 30ML PO Q4H PRN, COLACE 200MG PO Q12H PRN, MILK OF MAGNESIA 30ML PO Q12H PRN, AND HIS HOME MEDICATIONS WERE RESUMED. OBTAIN BRAIN CT (2) Lung nodules Status: Acute (3) Urinary tract infection Status: Acute Qualifiers: Urinary tract infection type: acute cystitis Hematuria presence: with hematuria Qualified Code(s): N30.01 - Acute cystitis with hematuria (4) Hypertension Status: Chronic Qualifiers: Hypertension type: primary hypertension Qualified Code(s): I10 - Essential (primary) hypertension (5) KRISTIN (generalized anxiety disorder) Status: Chronic (6) CHF (congestive heart failure) Status: Chronic Qualifiers: Heart failure type: unspecified Heart failure chronicity: chronic Qualified Code(s): I50.9 - Heart failure, unspecified
[2022-06-25] MEDS: ROCEPHIN VIAL 1 GRAM 1 G in NS 100 ML IV 100 ML IV SCH (14:42)
[2022-06-25] MEDS: MIRALAX POWDER (1 DOSE 17 G) PO SCH (20:09)
[2022-06-25] MEDS: SINGULAIR TAB 10 MG PO SCH (20:14)
[2022-06-26] MEDS: XOPENEX 1.25 MG/3 ML NEBULE NEB SCH ×4 (00:33→17:11)
[2022-06-26] MEDS: KLONOPIN TAB 0.5 MG PO SCH ×3 (05:23→21:03)
[2022-06-26 05:47] LABS: BASOPHILS # (AUTO) 0.1 X10^3/uL (0.0-0.1); BASOPHILS % (AUTO) 1.2 % (0.2-1.0); EOSINOPHILS # (AUTO) 0.2 x10^3/uL (0.0-0.2); EOSINOPHILS % (AUTO) 2.2 % (0.9-2.9); HEMATOCRIT 33.6 % (36.0-47.0); HEMOGLOBIN 11.6 g/dL (12.0-16.0); LYMPHOCYTES # (AUTO) 1.7 X10^3/uL (1.3-2.9); MEAN CORPUSCULAR HEMOGLOBIN 32.6 pg (27.0-34.0); MEAN CORPUSCULAR HGB CONC 34.5 g/dL (33.0-35.0); MEAN CORPUSCULAR VOLUME 94.6 fL (80.0-100.0); MEAN PLATELET VOLUME 7.4 fL (7.4-11.0); MONOCYTES # (AUTO) 0.8 x10^3/uL (0.3-0.8); MONOCYTES % (AUTO) 10.8 % (0.0-13.0); NEUTROPHILS # (AUTO) 4.9 x10^3/uL (2.2-4.8); NEUTROPHILS % (AUTO) 63.8 % (42.0-75.0); RED BLOOD COUNT 3.56 X10^6/uL (3.5-5.4); RED CELL DISTRIBUTION WIDTH 13.9 % (11.6-16.5); WHITE BLOOD COUNT 7.7 X10^3/uL (3.6-10.0)
[2022-06-26 06:05] LABS: ALANINE AMINOTRANSFERASE 15 Units/L (12-78); ALBUMIN 2.9 g/dL (3.4-5.0); ALKALINE PHOSPHATASE 93 Units/L (46-116); ASPARTATE AMINO TRANSFERASE 22 Units/L (15-37); BLOOD UREA NITROGEN 8 mg/dL (7-18); CHLORIDE 95 mmol/L (98-107); COR CA(FOR HYPOALB) 8.9 mg/dL (8.5-10.1); CREATINE KINASE 44 Units/L (26-192); CREATININE 0.99 mg/dL (0.55-1.02); SODIUM 133 mmol/L (136-145); TOTAL PROTEIN 6.6 g/dL (6.4-8.2); eGFR NON BLACK RACES 56 (>60)
--- NOTE | 2022-06-26 06:08 | RAD ---
HISTORYShortness of breathSTUDYChest AP [id number]/2022FINDINGSHear t remains enlarged. No congestive heart failure is noted. Right basilar lung mass is unchanged. No definite acute infiltrates are identified. Left pleural effusion is unchanged. Bony thorax is unremarkable.IMPRESSIONNo change cardiomegaly without congestive heart failureNo change right lung massNo change left pleural effusionElectronically signed by: MARYBETH SMITH (Jun 26, 2022 06:06:58)
[2022-06-26] MEDS: VITAMIN C PO SCH (08:04)
[2022-06-26] MEDS: PROTONIX TAB 40 MG PO SCH (08:04)
[2022-06-26] MEDS: VITAMIN B-12 PO SCH (08:04)
[2022-06-26] MEDS: ASPIRIN EC 81 MG PO SCH (08:04)
[2022-06-26] MEDS: NORCO 10/325 TAB PO PRN ×2 (08:05→17:30)
[2022-06-26] MEDS: LASIX IVP SCH (08:05)
[2022-06-26] MEDS: LOVENOX INJ 40 MG SYR SC SCH (08:06)
[2022-06-26] MEDS: VITAMIN D3 25 mcg (1,000 UNITS) PO SCH (08:19)
[2022-06-26] MEDS: PULMICORT NEB TX 0.5 MG NEB SCH ×2 (08:45→21:00)
[2022-06-26 08:57] LABS: CRYPTOSPORIDIUM PARVUM ANTIGEN NEGATIVE (NEGATIVE); GIARDIA LAMBLIA ANTIGEN NEGATIVE (NEGATIVE)
--- NOTE | 2022-06-26 10:22 | PCM.PROG ---
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 SHE HAS A PMH OF CHF, GERD, KRISTIN, AND HTN. TODAY, SHE IS ALERT, LYING IN BED ON MORNING ROUNDS. SHE CONTINUES WITH COMPLAINTS OF A COUGH, GENERALIZED WEAKNESS, AND GENERALIZED PAIN. ON EXAMINATION, HEART IS REGULAR IN RATE AND RHYTHM. BILATERAL LUNGS ARE NOTED WITH DIMINISHED LUNG SOUNDS THROUGHOUT. ABDOMEN IS ROUND, SOFT, AND NON- TENDER WITH NORMAL BOWEL SOUNDS NOTED IN ALL QUADRANTS. TRACE LOWER EXTREMITY EDEMA NOTED. HER VITALS THIS MORNING ARE: 98.5-89-22-100%-144/61. SHE IS CURRENTLY UTILIZING OXYGEN VIA NASAL CANNULA AT 2 LPM. LABS WERE OBTAINED THIS MORNING. WBC 10.1, RBC 3.58, HGB 11.6, HCT 33.6, SODIUM 134, POTASSIUM 4.1, CHLORIDE 98, CARBON DIOXIDE 33.7, BUN 6, CREATININE 0.84, BUN 6, CREATININE 0.84, GLUCOSE 135, CALCIUM 8.0, AST 19, ALT 13, ALK PHOS 95, TOTAL PROTEIN 6.4, ALBUMIN 2.8. URINE CULTURE IS POSITIVE FOR GROWTH OF E.COLI. SPUTUM CULTURE IS PENDING. A CHEST XRAY WAS REPEATED THIS MORNING. IT REVEALED: Lung mass in the lower lateral right lung measures roughly 5 cm by radiography. Appears slightly smaller on the prior CT. Small left pleural effusion is present associated with atelectasis. I do not believe these are changed from the CT 06/23/2022. Upper lungs clear. No pneumothorax or new finding. Cardiomegaly is present. There are degenerative changes in the left shoulder. A BRAIN CT WAS OBTAINED YESTERDAY. IT REVEALED: 1. Scattered bilateral cerebral hyperdensities, compatible with hyperdense metastases or hemorrhagic metastatic disease. Recommend MR brain follow-up with and without contrast to further evaluate.2. Cerebral atrophy and microangiopathy. EKG REVEALED: SINUS RHYTHM WITH PREMATURE SUPRAVENTRICULAR COMPLEXES. SHE IS CURRENTLY RECEIVING ROCEPHIN 1G IV DAILY, PULMICORT NEBS BID, XOPENEX NEBS Q6H, LOVENOX 40MG SC DAILY, ZOFRAN 4MG IV Q6H, MAALOX 30ML PO Q4H PRN, COLACE 200MG PO Q12H PRN, MILK OF MAGNESIA 30ML PO Q12H PRN, AND HIS HOME MEDICATIONS WERE RESUMED. WE SPOKE WITH PATIENT AND HER FAMILY MEMBERS AT LENGTH REGARDING THE CT FINDINGS. THEY ARE DISCUSSING A FAMILY WHETHER THEY WISH TO PURSUE BIOPSY AND FURTHER TREATMENT OR TO GO HOME ON HOSPICE CARE UPON DISCHARGE. OTHERWISE, WE WILL FOLLOW-UP WITH AM LABS AND CONTINUE TO MONITOR. TIME SPENT ON CLINICAL ASSESSMENT, REVIWING LABS AND IMAGING, DECISION MAKING, AND DOCUMENTATION GREATER THAN 45 MINUTES. - Past Medical Family Social History Past Med/Fam/Surg Hx: No changes since H&P Allergies: Allergies ciprofloxacin [From Cipro] Allergy (Verified 04/10/21 12:24) codeine Allergy (Verified 04/10/21 12:24) doxycycline Allergy (Verified 04/10/21 12:24) promethazine [From Phenergan] Allergy (Verified 04/10/21 12:24) Sulfa (Sulfonamide Antibiotics) [SULFA] Allergy (Verified 04/10/21 12:24) - Review of Systems ROS: No change since H&P - Vital Signs and I&O's Vital Signs: Temperature 98.1 F Pulse Rate 98 Respiratory Rate 26 Blood Pressure [Right Arm] 165/70 Blood Pressure 141/63 O2 Sat by Pulse Oximetry 95 Intake and Output: Intake & Output 06/23/22 06/24/22 06/25/22 06/26/22 11:59 11:59 11:59 11:59 Intake Total 1210 / 1210 930 / 930 1532 / 1532 630 / 630 Output Total 500 / 500 1850 / 1850 1920 / 1920 1850 / 1850 Balance 710 / 710 -920 / -920 -388 / -388 -1220 / -1220 - Physical Exam Oriented: Normal Eyes: Normal Ear: Normal Nose: Normal Throat: Normal Respiratory: Generalized, Diminished Cardiovascular: Normal : Normal Auscultation: Bowel Sounds: Normal Palpation: Normal Tenderness: Normal Skin: Normal Musculoskeletal: Normal Psychiatric: Normal Mood Description: Calm Affect: Normal Speech Pattern: Clear - Laboratory and Diagnostics Result Diagrams: 06/26/22 05:20 06/26/22 05:20 Labs: 06/26/22 05:40 Stool - Final 06/23/22 10:25 Sputum - Expectorated Sputum Sputum Culture - Final 06/23/22 10:25 Sputum - Expectorated Sputum - Final 06/22/22 18:35 Urine,Catheterized Urine Culture - Final Escherichia Coli Laboratory WBC 7.7 X10^3/uL (3.6-10.0) 06/26/22 05:20 RBC 3.56 X10^6/uL (3.5-5.4) 06/26/22 05:20 Hgb 11.6 g/dL (12.0-16.0) L 06/26/22 05:20 Hct 33.6 % (36.0-47.0) L 06/26/22 05:20 MCV 94.6 fL (80.0-100.0) 06/26/22 05:20 MCH 32.6 pg (27.0-34.0) 06/26/22 05:20 MCHC 34.5 g/dL (33.0-35.0) 06/26/22 05:20 RDW 13.9 % (11.6-16.5) 06/26/22 05:20 Plt Count 315 X10^3/uL (150.0-450.0) 06/26/22 05:20 MPV 7.4 fL (7.4-11.0) 06/26/22 05:20 Neut % (Auto) 63.8 % (42.0-75.0) 06/26/22 05:20 Lymph % (Auto) 22.0 % (21.0-51.0) 06/26/22 05:20 [place] % (Auto) 10.8 % (0.0-13.0) 06/26/22 05:20 Eos % (Auto) 2.2 % (0.9-2.9) 06/26/22 05:20 Baso % (Auto) 1.2 % (0.2-1.0) H 06/26/22 05:20 Neut # (Auto) 4.9 x10^3/uL (2.2-4.8) H 06/26/22 05:20 Lymph # (Auto) 1.7 X10^3/uL (1.3-2.9) 06/26/22 05:20 [place] # (Auto) 0.8 x10^3/uL (0.3-0.8) 06/26/22 05:20 Eos # (Auto) 0.2 x10^3/uL (0.0-0.2) 06/26/22 05:20 Baso # (Auto) 0.1 X10^3/uL (0.0-0.1) 06/26/22 05:20 Absolute Nucleated RBC 0.1 /100WBC 06/26/22 05:20 D-Dimer 1.25 ug/ml (0.0-0.57) H 06/22/22 15:15 Sodium 133 mmol/L (136-145) L 06/26/22 05:20 Corrected Sodium TNP 06/26/22 05:20 Potassium 4.1 mmol/L (3.5-5.1) 06/26/22 05:20 Chloride 95 mmol/L (98-107) L 06/26/22 05:20 Carbon Dioxide 33.0 mmol/L (21-32) H 06/26/22 05:20 BUN 8 mg/dL (7-18) 06/26/22 05:20 Creatinine 0.99 mg/dL (0.55-1.02) 06/26/22 05:20 Est GFR (MDRD) Af Amer > 60 (>60) 06/26/22 05:20 Est GFR (MDRD) Non-Af 56 (>60) L 06/26/22 05:20 Glucose 107 mg/dL (65-99) H 06/26/22 05:20 Calcium 8.0 mg/dL (8.5-10.1) L 06/26/22 05:20 Corrected Calcium 8.9 mg/dL (8.5-10.1) 06/26/22 05:20 Total Bilirubin 0.30 mg/dL (0.2-1.0) 06/26/22 05:20 AST 22 Units/L (15-37) 06/26/22 05:20 ALT 15 Units/L (12-78) 06/26/22 05:20 Alkaline Phosphatase 93 Units/L (46-116) 06/26/22 05:20 Creatine Kinase 44 Units/L (26-192) 06/26/22 05:20 Troponin I High Sens 14.3 ng/L (4.0-60.0) 06/26/22 05:20 B-Natriuretic Peptide 90.4 pg/mL (0-79) H 06/22/22 15:15 Total Protein 6.6 g/dL (6.4-8.2) 06/26/22 05:20 Albumin 2.9 g/dL (3.4-5.0) L 06/26/22 05:20 Globulin 3.7 g/dL (2.5-4.5) 06/26/22 05:20 Albumin/Globulin Ratio 0.8 Ratio (1.1-2.1) L 06/26/22 05:20 Specimen Type Catherized urine 06/22/22 18:35 Urine Color Pale yellow (YELLOW) 06/22/22 18:35 Urine Appearance Hazy (CLEAR) 06/22/22 18:35 Urine pH 6.5 (5.0 - 8.0) 06/22/22 18:35 Ur Specific [place] 1.010 (1.000-1.030) 06/22/22 18:35 Urine Protein Negative (NEGATIVE) 06/22/22 18:35 Urine Glucose (UA) Negative (NEGATIVE) 06/22/22 18:35 Urine Ketones Negative (NEGATIVE) 06/22/22 18:35 Urine Blood 2+ (NEGATIVE) 06/22/22 18:35 Urine Nitrite Negative (NEGATIVE) 06/22/22 18:35 Urine Bilirubin Negative (NEGATIVE) 06/22/22 18:35 Urine Urobilinogen Normal (NORMAL) 06/22/22 18:35 Ur Leukocyte Esterase 3+ (NEGATIVE) 06/22/22 18:35 Urine RBC 3-5 /HPF (0-3) A 06/22/22 18:35 Urine WBC 30-50 /HPF (0-5) A 06/22/22 18:35 Ur Squamous Epith Cells Rare /HPF (NEGATIVE) 06/22/22 18:35 Urine Bacteria 1+ /HPF (NEGATIVE) 06/22/22 18:35 Urine Mucus Few /HPF (NEGATIVE) 06/22/22 18:35 Ur Culture Indicated? Yes/culture set up 06/22/22 18:35 Stool Description 10g unformed brown 06/26/22 05:40 Stool for White Cells Positive (NEGATIVE) A 06/26/22 05:40 SARS-CoV-2 (PCR) Negative (NEGATIVE) 06/22/22 16:44 Cryptosporid parvum Ag Negative (NEGATIVE) 06/26/22 05:40 Giardia lamblia Ag Negative (NEGATIVE) 06/26/22 05:40 Influenza Type A (PCR) Negative (NEGATIVE) 06/22/22 16:44 Influenza Type B (PCR) Negative (NEGATIVE) 06/22/22 16:44 RSV (PCR) Negative (NEGATIVE) 06/22/22 16:44 - Plan (1) Pneumonia Status: Acute Qualifiers: Laterality: bilateral Lung location: unspecified part of lung Plan: ROCEPHIN 1G IV DAILY, PULMICORT NEBS BID, XOPENEX NEBS Q6H, LOVENOX 40MG SC DAILY, ZOFRAN 4MG IV Q6H, MAALOX 30ML PO Q4H PRN, COLACE 200MG PO Q12H PRN, MILK OF MAGNESIA 30ML PO Q12H PRN, AND HIS HOME MEDICATIONS WERE RESUMED. (2) Lung mass Status: Acute (3) Lung nodules Status: Acute (4) Metastatic disease Status: Acute Qualifiers: Area of secondary neoplastic involvement: other site Qualified Code(s): C79.89 - Secondary malignant neoplasm of other specified sites (5) Urinary tract infection Status: Acute Qualifiers: Urinary tract infection type: acute cystitis Hematuria presence: with hematuria Qualified Code(s): N30.01 - Acute cystitis with hematuria (6) Hypertension Status: Chronic Qualifiers: Hypertension type: primary hypertension Qualified Code(s): I10 - Essential (primary) hypertension (7) KRISTIN (generalized anxiety disorder) Status: Chronic (8) CHF (congestive heart failure) Status: Chronic Qualifiers: Heart failure type: unspecified Heart failure chronicity: chronic Qualified Code(s): I50.9 - Heart failure, unspecified
[2022-06-26] MEDS: COLACE CAP 100 MG PO PRN (11:04)
[2022-06-26] MEDS ORDERED: MILK OF MAGNESIA PO PRN (11:04)
--- NOTE | 2022-06-26 11:57 | PCM.PROG ---
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 SHE HAS A PMH OF CHF, GERD, KRISTIN, AND HTN. TODAY, SHE IS ALERT, LYING IN BED ON MORNING ROUNDS. SHE CONTINUES WITH COMPLAINTS OF A COUGH, GENERALIZED WEAKNESS, AND GENERALIZED PAIN. ON EXAMINATION, HEART IS REGULAR IN RATE AND RHYTHM. BILATERAL LUNGS ARE NOTED WITH DIMINISHED LUNG SOUNDS THROUGHOUT. ABDOMEN IS ROUND, SOFT, AND NON- TENDER WITH NORMAL BOWEL SOUNDS NOTED IN ALL QUADRANTS. TRACE LOWER EXTREMITY EDEMA NOTED. HER VITALS THIS MORNING ARE: 98.9-98-24-95%-141/63. SHE IS CURRENTLY UTILIZING OXYGEN VIA NASAL CANNULA AT 2 LPM. LABS WERE OBTAINED THIS MORNING. WBC 7.7, HGB 11.6, HCT 33.6, SODIUM 133, POTASSIUM 4.1, BUN 8, CREATININE 0.99, GLUCOSE 107, CALCIUM 8.0, AST 22, ALT 15, ALK PHOS 93, TOTAL PROTEIN 6.6, ALBUMIN 2.9. URINE CULTURE IS POSITIVE FOR GROWTH OF E.COLI. SPUTUM CULTURE IS PENDING. A CHEST XRAY WAS REPEATED THIS MORNING. IT REVEALED: Heart remains enlarged. No congestive heart failure is noted. Right basilar lung mass is unchanged. No definite acute infiltrates are identified. Left pleural effusion is unchanged. Bony thorax is unremarkable. SHE IS CURRENTLY RECEIVING ROCEPHIN 1G IV DAILY, PULMICORT NEBS BID, XOPENEX NEBS Q6H, LOVENOX 40MG SC DAILY, ZOFRAN 4MG IV Q6H, MAALOX 30ML PO Q4H PRN, TORADOL 30MG IV Q8H PRN, COLACE 200MG PO Q12H PRN, MILK OF MAGNESIA 30ML PO Q12H PRN, AND HIS HOME MEDICATIONS WERE RESUMED. WE SPOKE WITH PATIENT AND HER FAMILY MEMBERS AT LENGTH REGARDING THE CT FINDINGS AND THEIR DECISION FOR FURTHER CARE. THEY WISH FOR PATIENT TO GO HOME WITH HOSPICE CARE FOLLOWING DISCHARGE. THEY DO NOT WISH TO PERSUE BIOPSY OR OTHER TREATMENTS. WE ARE IN AGREEMENT WITH PLANS AND WILL START ARRANGING HOSPICE. OTHERWISE, WE WILL FOLLOW-UP WITH AM LABS AND CONTINUE TO MONITOR. TIME SPENT ON CLINICAL ASSESSMENT, REVIWING LABS AND IMAGING, DECISION MAKING, AND DOCUMENTATION GREATER THAN 45 MINUTES. - Past Medical Family Social History Past Med/Fam/Surg Hx: No changes since H&P Allergies: Allergies ciprofloxacin [From Cipro] Allergy (Verified 04/10/21 12:24) codeine Allergy (Verified 04/10/21 12:24) doxycycline Allergy (Verified 04/10/21 12:24) promethazine [From Phenergan] Allergy (Verified 04/10/21 12:24) Sulfa (Sulfonamide Antibiotics) [SULFA] Allergy (Verified 04/10/21 12:24) - Review of Systems ROS: No change since H&P - Vital Signs and I&O's Vital Signs: Temperature 98.1 F Pulse Rate 98 Respiratory Rate 24 Blood Pressure [Right Arm] 165/70 Blood Pressure 141/63 O2 Sat by Pulse Oximetry 95 Intake and Output: Intake & Output 06/23/22 06/24/22 06/25/22 06/26/22 11:59 11:59 11:59 11:59 Intake Total 1210 / 1210 930 / 930 1532 / 1532 630 / 630 Output Total 500 / 500 1850 / 1850 1920 / 1920 1850 / 1850 Balance 710 / 710 -920 / -920 -388 / -388 -1220 / -1220 - Physical Exam Oriented: Normal Eyes: Normal Ear: Normal Nose: Normal Throat: Normal Respiratory: Generalized, Diminished Cardiovascular: Normal : Normal Auscultation: Bowel Sounds: Normal Tenderness: Normal Skin: Normal Musculoskeletal: Normal Psychiatric: Normal Mood Description: Calm Affect: Normal Speech Pattern: Clear - Laboratory and Diagnostics Result Diagrams: 06/26/22 05:20 06/26/22 05:20 Labs: 06/26/22 05:40 Stool - Final 06/23/22 10:25 Sputum - Expectorated Sputum Sputum Culture - Final 06/23/22 10:25 Sputum - Expectorated Sputum - Final 06/22/22 18:35 Urine,Catheterized Urine Culture - Final Escherichia Coli Laboratory WBC 7.7 X10^3/uL (3.6-10.0) 06/26/22 05:20 RBC 3.56 X10^6/uL (3.5-5.4) 06/26/22 05:20 Hgb 11.6 g/dL (12.0-16.0) L 06/26/22 05:20 Hct 33.6 % (36.0-47.0) L 06/26/22 05:20 MCV 94.6 fL (80.0-100.0) 06/26/22 05:20 MCH 32.6 pg (27.0-34.0) 06/26/22 05:20 MCHC 34.5 g/dL (33.0-35.0) 06/26/22 05:20 RDW 13.9 % (11.6-16.5) 06/26/22 05:20 Plt Count 315 X10^3/uL (150.0-450.0) 06/26/22 05:20 MPV 7.4 fL (7.4-11.0) 06/26/22 05:20 Neut % (Auto) 63.8 % (42.0-75.0) 06/26/22 05:20 Lymph % (Auto) 22.0 % (21.0-51.0) 06/26/22 05:20 [place] % (Auto) 10.8 % (0.0-13.0) 06/26/22 05:20 Eos % (Auto) 2.2 % (0.9-2.9) 06/26/22 05:20 Baso % (Auto) 1.2 % (0.2-1.0) H 06/26/22 05:20 Neut # (Auto) 4.9 x10^3/uL (2.2-4.8) H 06/26/22 05:20 Lymph # (Auto) 1.7 X10^3/uL (1.3-2.9) 06/26/22 05:20 [place] # (Auto) 0.8 x10^3/uL (0.3-0.8) 06/26/22 05:20 Eos # (Auto) 0.2 x10^3/uL (0.0-0.2) 06/26/22 05:20 Baso # (Auto) 0.1 X10^3/uL (0.0-0.1) 06/26/22 05:20 Absolute Nucleated RBC 0.1 /100WBC 06/26/22 05:20 D-Dimer 1.25 ug/ml (0.0-0.57) H 06/22/22 15:15 Sodium 133 mmol/L (136-145) L 06/26/22 05:20 Corrected Sodium TNP 06/26/22 05:20 Potassium 4.1 mmol/L (3.5-5.1) 06/26/22 05:20 Chloride 95 mmol/L (98-107) L 06/26/22 05:20 Carbon Dioxide 33.0 mmol/L (21-32) H 06/26/22 05:20 BUN 8 mg/dL (7-18) 06/26/22 05:20 Creatinine 0.99 mg/dL (0.55-1.02) 06/26/22 05:20 Est GFR (MDRD) Af Amer > 60 (>60) 06/26/22 05:20 Est GFR (MDRD) Non-Af 56 (>60) L 06/26/22 05:20 Glucose 107 mg/dL (65-99) H 06/26/22 05:20 Calcium 8.0 mg/dL (8.5-10.1) L 06/26/22 05:20 Corrected Calcium 8.9 mg/dL (8.5-10.1) 06/26/22 05:20 Total Bilirubin 0.30 mg/dL (0.2-1.0) 06/26/22 05:20 AST 22 Units/L (15-37) 06/26/22 05:20 ALT 15 Units/L (12-78) 06/26/22 05:20 Alkaline Phosphatase 93 Units/L (46-116) 06/26/22 05:20 Creatine Kinase 44 Units/L (26-192) 06/26/22 05:20 Troponin I High Sens 14.3 ng/L (4.0-60.0) 06/26/22 05:20 B-Natriuretic Peptide 90.4 pg/mL (0-79) H 06/22/22 15:15 Total Protein 6.6 g/dL (6.4-8.2) 06/26/22 05:20 Albumin 2.9 g/dL (3.4-5.0) L 06/26/22 05:20 Globulin 3.7 g/dL (2.5-4.5) 06/26/22 05:20 Albumin/Globulin Ratio 0.8 Ratio (1.1-2.1) L 06/26/22 05:20 Specimen Type Catherized urine 06/22/22 18:35 Urine Color Pale yellow (YELLOW) 06/22/22 18:35 Urine Appearance Hazy (CLEAR) 06/22/22 18:35 Urine pH 6.5 (5.0 - 8.0) 06/22/22 18:35 Ur Specific [place] 1.010 (1.000-1.030) 06/22/22 18:35 Urine Protein Negative (NEGATIVE) 06/22/22 18:35 Urine Glucose (UA) Negative (NEGATIVE) 06/22/22 18:35 Urine Ketones Negative (NEGATIVE) 06/22/22 18:35 Urine Blood 2+ (NEGATIVE) 06/22/22 18:35 Urine Nitrite Negative (NEGATIVE) 06/22/22 18:35 Urine Bilirubin Negative (NEGATIVE) 06/22/22 18:35 Urine Urobilinogen Normal (NORMAL) 06/22/22 18:35 Ur Leukocyte Esterase 3+ (NEGATIVE) 06/22/22 18:35 Urine RBC 3-5 /HPF (0-3) A 06/22/22 18:35 Urine WBC 30-50 /HPF (0-5) A 06/22/22 18:35 Ur Squamous Epith Cells Rare /HPF (NEGATIVE) 06/22/22 18:35 Urine Bacteria 1+ /HPF (NEGATIVE) 06/22/22 18:35 Urine Mucus Few /HPF (NEGATIVE) 06/22/22 18:35 Ur Culture Indicated? Yes/culture set up 06/22/22 18:35 Stool Description 10g unformed brown 06/26/22 05:40 Stool for White Cells Positive (NEGATIVE) A 06/26/22 05:40 Stl C. diff Tox B Gene Negative (NEGATIVE) 06/26/22 05:40 Stl C. diff [id number] Presumptive negative (NEGATIVE) 06/26/22 05:40 SARS-CoV-2 (PCR) Negative (NEGATIVE) 06/22/22 16:44 Cryptosporid parvum Ag Negative (NEGATIVE) 06/26/22 05:40 Giardia lamblia Ag Negative (NEGATIVE) 06/26/22 05:40 Influenza Type A (PCR) Negative (NEGATIVE) 06/22/22 16:44 Influenza Type B (PCR) Negative (NEGATIVE) 06/22/22 16:44 RSV (PCR) Negative (NEGATIVE) 06/22/22 16:44 - Plan (1) Pneumonia Status: Acute Qualifiers: Laterality: bilateral Lung location: unspecified part of lung Plan: ROCEPHIN 1G IV DAILY, PULMICORT NEBS BID, XOPENEX NEBS Q6H, LOVENOX 40MG SC DAILY, ZOFRAN 4MG IV Q6H, MAALOX 30ML PO Q4H PRN, COLACE 200MG PO Q12H PRN, MILK OF MAGNESIA 30ML PO Q12H PRN, AND HIS HOME MEDICATIONS WERE RESUMED. (2) Lung mass Status: Acute (3) Lung nodules Status: Acute (4) Metastatic disease Status: Acute Qualifiers: Area of secondary neoplastic involvement: other site Qualified Code(s): C79.89 - Secondary malignant neoplasm of other specified sites (5) Urinary tract infection Status: Acute Qualifiers: Urinary tract infection type: acute cystitis Hematuria presence: with hematuria Qualified Code(s): N30.01 - Acute cystitis with hematuria (6) Hypertension Status: Chronic Qualifiers: Hypertension type: primary hypertension Qualified Code(s): I10 - Essential (primary) hypertension (7) KRISTIN (generalized anxiety disorder) Status: Chronic (8) CHF (congestive heart failure) Status: Chronic Qualifiers: Heart failure type: unspecified Heart failure chronicity: chronic Qualified Code(s): I50.9 - Heart failure, unspecified
[2022-06-26] MEDS ORDERED: COLACE CAP 100 MG PO SCH (12:00)
[2022-06-26] MEDS ORDERED: TORADOL 30 MG VIAL IM PRN (15:08)
[2022-06-26] MEDS: ROCEPHIN VIAL 1 GRAM 1 G in NS 100 ML IV 100 ML IV SCH (15:17)
[2022-06-26] MEDS: PREPARATION H OINT RECTAL PRN (18:31)
[2022-06-26] MEDS: AUGMENTIN 875 MG/125 MG TAB PO SCH (20:11)
[2022-06-26] MEDS: SINGULAIR TAB 10 MG PO SCH (20:12)
[2022-06-26] MEDS: MIRALAX POWDER (1 DOSE 17 G) PO SCH (20:35)
[2022-06-26] MEDS: MAALOX or MYLANTA PO PRN (22:07)
[2022-06-26] MEDS ORDERED: COLACE CAP 100 MG PO PRN (23:28)
[2022-06-27] MEDS: XOPENEX 1.25 MG/3 ML NEBULE NEB SCH ×5 (00:10→18:32)
[2022-06-27] MEDS: NORCO 10/325 TAB PO PRN ×3 (04:42→20:07)
[2022-06-27 04:59] LABS: BASOPHILS # (AUTO) 0.2 X10^3/uL (0.0-0.1); BASOPHILS % (AUTO) 2.1 % (0.2-1.0); EOSINOPHILS # (AUTO) 0.2 x10^3/uL (0.0-0.2); EOSINOPHILS % (AUTO) 2.2 % (0.9-2.9); HEMATOCRIT 34.5 % (36.0-47.0); HEMOGLOBIN 11.8 g/dL (12.0-16.0); LYMPHOCYTES # (AUTO) 1.3 X10^3/uL (1.3-2.9); LYMPHOCYTES % (AUTO) 16.5 % (21.0-51.0); MEAN CORPUSCULAR HEMOGLOBIN 32.1 pg (27.0-34.0); MEAN CORPUSCULAR VOLUME 94.3 fL (80.0-100.0); MEAN PLATELET VOLUME 7.5 fL (7.4-11.0); MONOCYTES # (AUTO) 0.8 x10^3/uL (0.3-0.8); MONOCYTES % (AUTO) 9.7 % (0.0-13.0); NEUTROPHILS # (AUTO) 5.4 x10^3/uL (2.2-4.8); NEUTROPHILS % (AUTO) 69.5 % (42.0-75.0); RED BLOOD COUNT 3.66 X10^6/uL (3.5-5.4); RED CELL DISTRIBUTION WIDTH 13.9 % (11.6-16.5); WHITE BLOOD COUNT 7.8 X10^3/uL (3.6-10.0)
[2022-06-27] MEDS: KLONOPIN TAB 0.5 MG PO SCH ×3 (05:00→21:53)
[2022-06-27 05:15] LABS: ALANINE AMINOTRANSFERASE 18 Units/L (12-78); ALBUMIN 2.8 g/dL (3.4-5.0); ALKALINE PHOSPHATASE 90 Units/L (46-116); ASPARTATE AMINO TRANSFERASE 21 Units/L (15-37); BLOOD UREA NITROGEN 7 mg/dL (7-18); CALCIUM 8.1 mg/dL (8.5-10.1); CARBON DIOXIDE 33.2 mmol/L (21-32); CHLORIDE 96 mmol/L (98-107); COR CA(FOR HYPOALB) 9.1 mg/dL (8.5-10.1); COR NA(FOR HYPERGLY) 135 mmol/L (136-145); CREATININE 0.88 mg/dL (0.55-1.02); SODIUM 135 mmol/L (136-145); TOTAL PROTEIN 6.3 g/dL (6.4-8.2); eGFR NON BLACK RACES > 60 (>60)
--- NOTE | 2022-06-27 06:05 | RAD ---
HISTORYSOB HX: CVA, AFIB SX: APPENDEVTOMY, GBSTUDYCHEST, 1 [id number] trachea is midline. The cardiac silhouette is enlarged.. Right basilar lung mass unchanged. Stable left pleural effusion. No pneumothorax peer the bony thorax is unremarkable.IMPRESSIONStable portable chest.Electronically signed by: Jonathan Heller (Jun 27, 2022 06:03:41)
[2022-06-27] MEDS: PULMICORT NEB TX 0.5 MG NEB SCH ×2 (08:05→20:50)
[2022-06-27] MEDS: PREPARATION H OINT RECTAL PRN ×3 (09:00→17:48)
[2022-06-27] MEDS: VITAMIN B-12 PO SCH (09:22)
[2022-06-27] MEDS: ASPIRIN EC 81 MG PO SCH (09:22)
[2022-06-27] MEDS: VITAMIN C PO SCH (09:22)
[2022-06-27] MEDS: AUGMENTIN 875 MG/125 MG TAB PO SCH ×2 (09:22→20:04)
[2022-06-27] MEDS: PROTONIX TAB 40 MG PO SCH (09:22)
[2022-06-27] MEDS: VITAMIN D3 25 mcg (1,000 UNITS) PO SCH (09:23)
[2022-06-27] MEDS: LOVENOX INJ 40 MG SYR SC SCH (09:23)
[2022-06-27] MEDS: LASIX IVP SCH (11:12)
--- NOTE | 2022-06-27 13:00 | PCM.PROG ---
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 SHE HAS A PMH OF CHF, GERD, KRISTIN, AND HTN. TODAY, SHE IS ALERT, LYING IN BED ON MORNING ROUNDS. SHE CONTINUES WITH COMPLAINTS OF A COUGH, GENERALIZED WEAKNESS, AND GENERALIZED PAIN. ON EXAMINATION, HEART IS REGULAR IN RATE AND RHYTHM. BILATERAL LUNGS ARE NOTED WITH DIMINISHED LUNG SOUNDS THROUGHOUT. ABDOMEN IS ROUND, SOFT, AND NON- TENDER WITH NORMAL BOWEL SOUNDS NOTED IN ALL QUADRANTS. TRACE LOWER EXTREMITY EDEMA NOTED. HER VITALS THIS MORNING ARE: 98.9-98-24-95%-141/63. SHE IS CURRENTLY UTILIZING OXYGEN VIA NASAL CANNULA AT 2 LPM. LABS WERE OBTAINED THIS MORNING. WBC 7.7, HGB 11.6, HCT 33.6, SODIUM 133, POTASSIUM 4.1, BUN 8, CREATININE 0.99, GLUCOSE 107, CALCIUM 8.0, AST 22, ALT 15, ALK PHOS 93, TOTAL PROTEIN 6.6, ALBUMIN 2.9. URINE CULTURE IS POSITIVE FOR GROWTH OF E.COLI. SPUTUM CULTURE IS PENDING. A CHEST XRAY WAS REPEATED THIS MORNING. IT REVEALED: Heart remains enlarged. No congestive heart failure is noted. Right basilar lung mass is unchanged. No definite acute infiltrates are identified. Left pleural effusion is unchanged. Bony thorax is unremarkable. SHE IS CURRENTLY RECEIVING ROCEPHIN 1G IV DAILY, PULMICORT NEBS BID, XOPENEX NEBS Q6H, LOVENOX 40MG SC DAILY, ZOFRAN 4MG IV Q6H, MAALOX 30ML PO Q4H PRN, TORADOL 30MG IV Q8H PRN, COLACE 200MG PO Q12H PRN, MILK OF MAGNESIA 30ML PO Q12H PRN, AND HIS HOME MEDICATIONS WERE RESUMED. WE SPOKE WITH PATIENT AND HER FAMILY MEMBERS AT LENGTH REGARDING THE CT FINDINGS AND THEIR DECISION FOR FURTHER CARE. THEY WISH FOR PATIENT TO GO HOME WITH HOSPICE CARE FOLLOWING DISCHARGE. THEY DO NOT WISH TO PERSUE BIOPSY OR OTHER TREATMENTS. WE ARE IN AGREEMENT WITH PLANS AND WILL START ARRANGING HOSPICE. OTHERWISE, WE WILL FOLLOW-UP WITH AM LABS AND CONTINUE TO MONITOR. TIME SPENT ON CLINICAL ASSESSMENT, REVIWING LABS AND IMAGING, DECISION MAKING, AND DOCUMENTATION GREATER THAN 45 MINUTES. The patient is her breakfast this morning. With no new complaints. She had a good night last night reported by her daughter. Labs this morning look good. Continue current treatment. Past Medical Family Social History Past Med/Fam/Surg Hx: No changes since H&P Allergies: Allergies ciprofloxacin [From Cipro] Allergy (Verified 04/10/21 12:24) codeine Allergy (Verified 04/10/21 12:24) doxycycline Allergy (Verified 04/10/21 12:24) promethazine [From Phenergan] Allergy (Verified 04/10/21 12:24) Sulfa (Sulfonamide Antibiotics) [SULFA] Allergy (Verified 04/10/21 12:24) Review of Systems ROS: No change since H&P Vital Signs and I&O's Vital Signs: Temperature 98.3 F Pulse Rate 83 Respiratory Rate 19 Blood Pressure [Right Arm] 165/70 Blood Pressure 120/59 O2 Sat by Pulse Oximetry 98 Intake and Output: Intake & Output 06/25/22 06/26/22 06/27/22 06/28/22 11:59 11:59 11:59 11:59 Intake Total 1532 / 1532 630 / 630 350 / 350 Output Total 1920 / 1920 1850 / 1850 2950 / 2950 Balance -388 / -388 -1220 / -1220 -2600 / -2600 Physical Exam Oriented: Normal Eyes: Normal Ear: Normal Nose: Normal Throat: Normal Respiratory: Generalized and Diminished Cardiovascular: Normal : Normal Auscultation: Bowel Sounds: Normal Tenderness: Normal Skin: Normal Musculoskeletal: Normal Psychiatric: Normal Mood Description: Calm Affect: Normal Speech Pattern: Clear Laboratory and Diagnostics Result Diagrams: 06/27/22 04:15 06/27/22 04:15 Labs: 06/26/22 05:40 Stool Stool Culture - Preliminary 06/26/22 05:40 Stool - Final 06/23/22 10:25 Sputum - Expectorated Sputum Sputum Culture - Final 06/23/22 10:25 Sputum - Expectorated Sputum - Final 06/22/22 18:35 Urine,Catheterized Urine Culture - Final Escherichia Coli Laboratory WBC 7.8 X10^3/uL (3.6-10.0) 06/27/22 04:15 RBC 3.66 X10^6/uL (3.5-5.4) 06/27/22 04:15 Hgb 11.8 g/dL (12.0-16.0) L 06/27/22 04:15 Hct 34.5 % (36.0-47.0) L 06/27/22 04:15 MCV 94.3 fL (80.0-100.0) 06/27/22 04:15 MCH 32.1 pg (27.0-34.0) 06/27/22 04:15 MCHC 34.0 g/dL (33.0-35.0) 06/27/22 04:15 RDW 13.9 % (11.6-16.5) 06/27/22 04:15 Plt Count 336 X10^3/uL (150.0-450.0) 06/27/22 04:15 MPV 7.5 fL (7.4-11.0) 06/27/22 04:15 Neut % (Auto) 69.5 % (42.0-75.0) 06/27/22 04:15 Lymph % (Auto) 16.5 % (21.0-51.0) L 06/27/22 04:15 [place] % (Auto) 9.7 % (0.0-13.0) 06/27/22 04:15 Eos % (Auto) 2.2 % (0.9-2.9) 06/27/22 04:15 Baso % (Auto) 2.1 % (0.2-1.0) H 06/27/22 04:15 Neut # (Auto) 5.4 x10^3/uL (2.2-4.8) H 06/27/22 04:15 Lymph # (Auto) 1.3 X10^3/uL (1.3-2.9) 06/27/22 04:15 [place] # (Auto) 0.8 x10^3/uL (0.3-0.8) 06/27/22 04:15 Eos # (Auto) 0.2 x10^3/uL (0.0-0.2) 06/27/22 04:15 Baso # (Auto) 0.2 X10^3/uL (0.0-0.1) H 06/27/22 04:15 Absolute Nucleated RBC 0.1 /100WBC 06/27/22 04:15 D-Dimer 1.25 ug/ml (0.0-0.57) H 06/22/22 15:15 Sodium 135 mmol/L (136-145) L 06/27/22 04:15 Corrected Sodium 135 mmol/L (136-145) L 06/27/22 04:15 Potassium 4.1 mmol/L (3.5-5.1) 06/27/22 04:15 Chloride 96 mmol/L (98-107) L 06/27/22 04:15 Carbon Dioxide 33.2 mmol/L (21-32) H 06/27/22 04:15 BUN 7 mg/dL (7-18) 06/27/22 04:15 Creatinine 0.88 mg/dL (0.55-1.02) 06/27/22 04:15 Est GFR (MDRD) Af Amer > 60 (>60) 06/27/22 04:15 Est GFR (MDRD) Non-Af > 60 (>60) 06/27/22 04:15 Glucose 114 mg/dL (65-99) H 06/27/22 04:15 Calcium 8.1 mg/dL (8.5-10.1) L 06/27/22 04:15 Corrected Calcium 9.1 mg/dL (8.5-10.1) 06/27/22 04:15 Total Bilirubin 0.20 mg/dL (0.2-1.0) 06/27/22 04:15 AST 21 Units/L (15-37) 06/27/22 04:15 ALT 18 Units/L (12-78) 06/27/22 04:15 Alkaline Phosphatase 90 Units/L (46-116) 06/27/22 04:15 Creatine Kinase 44 Units/L (26-192) 06/26/22 05:20 Troponin I High Sens 14.3 ng/L (4.0-60.0) 06/26/22 05:20 B-Natriuretic Peptide 90.4 pg/mL (0-79) H 06/22/22 15:15 Total Protein 6.3 g/dL (6.4-8.2) L 06/27/22 04:15 Albumin 2.8 g/dL (3.4-5.0) L 06/27/22 04:15 Globulin 3.5 g/dL (2.5-4.5) 06/27/22 04:15 Albumin/Globulin Ratio 0.8 Ratio (1.1-2.1) L 06/27/22 04:15 Specimen Type Catherized urine 06/22/22 18:35 Urine Color Pale yellow (YELLOW) 06/22/22 18:35 Urine Appearance Hazy (CLEAR) 06/22/22 18:35 Urine pH 6.5 (5.0 - 8.0) 06/22/22 18:35 Ur Specific [place] 1.010 (1.000-1.030) 06/22/22 18:35 Urine Protein Negative (NEGATIVE) 06/22/22 18:35 Urine Glucose (UA) Negative (NEGATIVE) 06/22/22 18:35 Urine Ketones Negative (NEGATIVE) 06/22/22 18:35 Urine Blood 2+ (NEGATIVE) 06/22/22 18:35 Urine Nitrite Negative (NEGATIVE) 06/22/22 18:35 Urine Bilirubin Negative (NEGATIVE) 06/22/22 18:35 Urine Urobilinogen Normal (NORMAL) 06/22/22 18:35 Ur Leukocyte Esterase 3+ (NEGATIVE) 06/22/22 18:35 Urine RBC 3-5 /HPF (0-3) A 06/22/22 18:35 Urine WBC 30-50 /HPF (0-5) A 06/22/22 18:35 Ur Squamous Epith Cells Rare /HPF (NEGATIVE) 06/22/22 18:35 Urine Bacteria 1+ /HPF (NEGATIVE) 06/22/22 18:35 Urine Mucus Few /HPF (NEGATIVE) 06/22/22 18:35 Ur Culture Indicated? Yes/culture set up 06/22/22 18:35 Stool Description 10g unformed brown 06/26/22 05:40 Stool for White Cells Positive (NEGATIVE) A 06/26/22 05:40 Stl C. diff Tox B Gene Negative (NEGATIVE) 06/26/22 05:40 Stl C. diff [id number] Presumptive negative (NEGATIVE) 06/26/22 05:40 SARS-CoV-2 (PCR) Negative (NEGATIVE) 06/22/22 16:44 Cryptosporid parvum Ag Negative (NEGATIVE) 06/26/22 05:40 Giardia lamblia Ag Negative (NEGATIVE) 06/26/22 05:40 Influenza Type A (PCR) Negative (NEGATIVE) 06/22/22 16:44 Influenza Type B (PCR) Negative (NEGATIVE) 06/22/22 16:44 RSV (PCR) Negative (NEGATIVE) 06/22/22 16:44 Plan (1) Pneumonia: Status: Acute Qualifiers: Laterality: bilateral Lung location: unspecified part of lung Plan: ROCEPHIN 1G IV DAILY, PULMICORT NEBS BID, XOPENEX NEBS Q6H, LOVENOX 40MG SC DAILY, ZOFRAN 4MG IV Q6H, MAALOX 30ML PO Q4H PRN, COLACE 200MG PO Q12H PRN, MILK OF MAGNESIA 30ML PO Q12H PRN, AND HIS HOME MEDICATIONS WERE RESUMED. (2) Lung mass: Status: Acute (3) Lung nodules: Status: Acute (4) Metastatic disease: Status: Acute Qualifiers: Area of secondary neoplastic involvement: other site Qualified Code(s): C79.89 - Secondary malignant neoplasm of other specified sites (5) Urinary tract infection: Status: Acute Qualifiers: Urinary tract infection type: acute cystitis Hematuria presence: with hematuria Qualified Code(s): N30.01 - Acute cystitis with hematuria Plan: Continue p.o. Augmentin at this time. (6) Hypertension: Status: Chronic Qualifiers: Hypertension type: primary hypertension Qualified Code(s): I10 - Essential (primary) hypertension Narrative Support Text: Vital signs stable. (7) KRISTIN (generalized anxiety disorder): Status: Chronic (8) CHF (congestive heart failure): Status: Chronic Qualifiers: Heart failure type: unspecified Heart failure chronicity: chronic Qualified Code(s): I50.9 - Heart failure, unspecified
[2022-06-27] MEDS: MIRALAX POWDER (1 DOSE 17 G) PO SCH (20:04)
[2022-06-27] MEDS: SINGULAIR TAB 10 MG PO SCH (20:07)
[2022-06-28] MEDS: XOPENEX 1.25 MG/3 ML NEBULE NEB SCH ×5 (00:04→18:33)
[2022-06-28] MEDS: PREPARATION H OINT RECTAL PRN (00:14)
[2022-06-28 04:58] LABS: BASOPHILS % (AUTO) 0.2 % (0.2-1.0); EOSINOPHILS # (AUTO) 0.2 x10^3/uL (0.0-0.2); EOSINOPHILS % (AUTO) 2.4 % (0.9-2.9); HEMATOCRIT 29.6 % (36.0-47.0); HEMOGLOBIN 10.3 g/dL (12.0-16.0); LYMPHOCYTES # (AUTO) 1.8 X10^3/uL (1.3-2.9); MEAN CORPUSCULAR HEMOGLOBIN 32.5 pg (27.0-34.0); MEAN CORPUSCULAR HGB CONC 34.8 g/dL (33.0-35.0); MEAN CORPUSCULAR VOLUME 93.3 fL (80.0-100.0); MEAN PLATELET VOLUME 7.3 fL (7.4-11.0); MONOCYTES # (AUTO) 0.8 x10^3/uL (0.3-0.8); MONOCYTES % (AUTO) 11.1 % (0.0-13.0); NEUTROPHILS # (AUTO) 4.7 x10^3/uL (2.2-4.8); NEUTROPHILS % (AUTO) 62.3 % (42.0-75.0); RED BLOOD COUNT 3.17 X10^6/uL (3.5-5.4); RED CELL DISTRIBUTION WIDTH 13.8 % (11.6-16.5); WHITE BLOOD COUNT 7.6 X10^3/uL (3.6-10.0)
[2022-06-28 05:13] LABS: ALANINE AMINOTRANSFERASE 21 Units/L (12-78); ALBUMIN 2.3 g/dL (3.4-5.0); ALKALINE PHOSPHATASE 76 Units/L (46-116); ASPARTATE AMINO TRANSFERASE 28 Units/L (15-37); BLOOD UREA NITROGEN 6 mg/dL (7-18); CALCIUM 7.8 mg/dL (8.5-10.1); CARBON DIOXIDE 30.9 mmol/L (21-32); CHLORIDE 96 mmol/L (98-107); COR CA(FOR HYPOALB) 9.2 mg/dL (8.5-10.1); CREATININE 0.82 mg/dL (0.55-1.02); SODIUM 131 mmol/L (136-145); TOTAL PROTEIN 5.4 g/dL (6.4-8.2); eGFR NON BLACK RACES > 60 (>60)
[2022-06-28] MEDS: KLONOPIN TAB 0.5 MG PO SCH ×3 (06:22→21:10)
--- NOTE | 2022-06-28 06:54 | RAD ---
HISTORYSOBSTUDYCHEST, 1 [id number] AND TUBES: NoneHEART/ PULMONARY VASCULATURE: UnchangedLUNGS/ PLEURA: Lung parenchyma is unchanged. No pneumothoraxIMPRESSIONNo significant interval change.Electronically signed by: Kanu Cool (Jun 28, 2022 06:52:50)
[2022-06-28] MEDS: NORCO 10/325 TAB PO PRN ×3 (08:00→22:25)
[2022-06-28] MEDS: PROTONIX TAB 40 MG PO SCH (08:51)
[2022-06-28] MEDS: VITAMIN C PO SCH (08:51)
[2022-06-28] MEDS: ASPIRIN EC 81 MG PO SCH (08:52)
[2022-06-28] MEDS: LASIX PO SCH (08:52)
[2022-06-28] MEDS: VITAMIN D3 25 mcg (1,000 UNITS) PO SCH (08:52)
[2022-06-28] MEDS: VITAMIN B-12 PO SCH (08:53)
[2022-06-28] MEDS: PULMICORT NEB TX 0.5 MG NEB SCH ×2 (08:55→20:44)
[2022-06-28] MEDS: LOVENOX INJ 40 MG SYR SC SCH (09:17)
[2022-06-28] MEDS: AUGMENTIN 875 MG/125 MG TAB PO SCH ×2 (10:00→21:09)
--- NOTE | 2022-06-28 16:00 | PCM.PROG ---
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 SHE HAS A PMH OF CHF, GERD, KRISTIN, AND HTN. TODAY, SHE IS ALERT, LYING IN BED ON MORNING ROUNDS. SHE CONTINUES WITH COMPLAINTS OF A COUGH, GENERALIZED WEAKNESS, AND GENERALIZED PAIN. ON EXAMINATION, HEART IS REGULAR IN RATE AND RHYTHM. BILATERAL LUNGS ARE NOTED WITH DIMINISHED LUNG SOUNDS THROUGHOUT. ABDOMEN IS ROUND, SOFT, AND NON- TENDER WITH NORMAL BOWEL SOUNDS NOTED IN ALL QUADRANTS. TRACE LOWER EXTREMITY EDEMA NOTED. HER VITALS THIS MORNING ARE: 98.9-98-24-95%-141/63. SHE IS CURRENTLY UTILIZING OXYGEN VIA NASAL CANNULA AT 2 LPM. LABS WERE OBTAINED THIS MORNING. WBC 7.7, HGB 11.6, HCT 33.6, SODIUM 133, POTASSIUM 4.1, BUN 8, CREATININE 0.99, GLUCOSE 107, CALCIUM 8.0, AST 22, ALT 15, ALK PHOS 93, TOTAL PROTEIN 6.6, ALBUMIN 2.9. URINE CULTURE IS POSITIVE FOR GROWTH OF E.COLI. SPUTUM CULTURE IS PENDING. A CHEST XRAY WAS REPEATED THIS MORNING. IT REVEALED: Heart remains enlarged. No congestive heart failure is noted. Right basilar lung mass is unchanged. No definite acute infiltrates are identified. Left pleural effusion is unchanged. Bony thorax is unremarkable. SHE IS CURRENTLY RECEIVING ROCEPHIN 1G IV DAILY, PULMICORT NEBS BID, XOPENEX NEBS Q6H, LOVENOX 40MG SC DAILY, ZOFRAN 4MG IV Q6H, MAALOX 30ML PO Q4H PRN, TORADOL 30MG IV Q8H PRN, COLACE 200MG PO Q12H PRN, MILK OF MAGNESIA 30ML PO Q12H PRN, AND HIS HOME MEDICATIONS WERE RESUMED. WE SPOKE WITH PATIENT AND HER FAMILY MEMBERS AT LENGTH REGARDING THE CT FINDINGS AND THEIR DECISION FOR FURTHER CARE. THEY WISH FOR PATIENT TO GO HOME WITH HOSPICE CARE FOLLOWING DISCHARGE. THEY DO NOT WISH TO PERSUE BIOPSY OR OTHER TREATMENTS. WE ARE IN AGREEMENT WITH PLANS AND WILL START ARRANGING HOSPICE. OTHERWISE, WE WILL FOLLOW-UP WITH AM LABS AND CONTINUE TO MONITOR. TIME SPENT ON CLINICAL ASSESSMENT, REVIWING LABS AND IMAGING, DECISION MAKING, AND DOCUMENTATION GREATER THAN 45 MINUTES. Wednesday The patient is awake this morning. Her daughter is at her bedside with her. She had no acute problems yesterday or last night. She does continue to seem to be improving daily we will continue her on her current treatment. Past Medical Family Social History Past Med/Fam/Surg Hx: No changes since H&P Allergies: Allergies ciprofloxacin [From Cipro] Allergy (Verified 04/10/21 12:24) codeine Allergy (Verified 04/10/21 12:24) doxycycline Allergy (Verified 04/10/21 12:24) promethazine [From Phenergan] Allergy (Verified 04/10/21 12:24) Sulfa (Sulfonamide Antibiotics) [SULFA] Allergy (Verified 04/10/21 12:24) Review of Systems ROS: No change since H&P Vital Signs and I&O's Vital Signs: Temperature 98.3 F Pulse Rate 61 Respiratory Rate 30 Blood Pressure [Right Arm] 165/70 Blood Pressure 136/64 O2 Sat by Pulse Oximetry 100 Intake and Output: Intake & Output 06/26/22 06/27/22 06/28/22 06/29/22 11:59 11:59 11:59 11:59 Intake Total 630 / 630 350 / 350 1050 / 1050 Output Total 1850 / 1850 2950 / 2950 1875 / 1875 Balance -1220 / -1220 -2600 / -2600 -825 / -825 Physical Exam Oriented: Normal Eyes: Normal Ear: Normal Nose: Normal Throat: Normal Respiratory: Generalized and Diminished Cardiovascular: Normal : Normal Auscultation: Bowel Sounds: Normal Tenderness: Normal Skin: Normal Musculoskeletal: Normal Psychiatric: Normal Mood Description: Calm Affect: Normal Speech Pattern: Clear Laboratory and Diagnostics Result Diagrams: 06/28/22 04:34 06/28/22 04:34 Labs: 06/26/22 05:40 Stool Stool Culture - Final 06/26/22 05:40 Stool - Final 06/23/22 10:25 Sputum - Expectorated Sputum Sputum Culture - Final 06/23/22 10:25 Sputum - Expectorated Sputum - Final 06/22/22 18:35 Urine,Catheterized Urine Culture - Final Escherichia Coli Laboratory WBC 7.6 X10^3/uL (3.6-10.0) 06/28/22 04:34 RBC 3.17 X10^6/uL (3.5-5.4) L 06/28/22 04:34 Hgb 10.3 g/dL (12.0-16.0) L 06/28/22 04:34 Hct 29.6 % (36.0-47.0) L 06/28/22 04:34 MCV 93.3 fL (80.0-100.0) 06/28/22 04:34 MCH 32.5 pg (27.0-34.0) 06/28/22 04:34 MCHC 34.8 g/dL (33.0-35.0) 06/28/22 04:34 RDW 13.8 % (11.6-16.5) 06/28/22 04:34 Plt Count 278 X10^3/uL (150.0-450.0) 06/28/22 04:34 MPV 7.3 fL (7.4-11.0) L 06/28/22 04:34 Neut % (Auto) 62.3 % (42.0-75.0) 06/28/22 04:34 Lymph % (Auto) 24.0 % (21.0-51.0) 06/28/22 04:34 [place] % (Auto) 11.1 % (0.0-13.0) 06/28/22 04:34 Eos % (Auto) 2.4 % (0.9-2.9) 06/28/22 04:34 Baso % (Auto) 0.2 % (0.2-1.0) 06/28/22 04:34 Neut # (Auto) 4.7 x10^3/uL (2.2-4.8) 06/28/22 04:34 Lymph # (Auto) 1.8 X10^3/uL (1.3-2.9) 06/28/22 04:34 [place] # (Auto) 0.8 x10^3/uL (0.3-0.8) 06/28/22 04:34 Eos # (Auto) 0.2 x10^3/uL (0.0-0.2) 06/28/22 04:34 Baso # (Auto) 0.0 X10^3/uL (0.0-0.1) 06/28/22 04:34 Absolute Nucleated RBC 0.0 /100WBC 06/28/22 04:34 D-Dimer 1.25 ug/ml (0.0-0.57) H 06/22/22 15:15 Sodium 131 mmol/L (136-145) L 06/28/22 04:34 Corrected Sodium TNP 06/28/22 04:34 Potassium 4.0 mmol/L (3.5-5.1) 06/28/22 04:34 Chloride 96 mmol/L (98-107) L 06/28/22 04:34 Carbon Dioxide 30.9 mmol/L (21-32) 06/28/22 04:34 BUN 6 mg/dL (7-18) L 06/28/22 04:34 Creatinine 0.82 mg/dL (0.55-1.02) 06/28/22 04:34 Est GFR (MDRD) Af Amer > 60 (>60) 06/28/22 04:34 Est GFR (MDRD) Non-Af > 60 (>60) 06/28/22 04:34 Glucose 105 mg/dL (65-99) H 06/28/22 04:34 Calcium 7.8 mg/dL (8.5-10.1) L 06/28/22 04:34 Corrected Calcium 9.2 mg/dL (8.5-10.1) 06/28/22 04:34 Total Bilirubin 0.10 mg/dL (0.2-1.0) L 06/28/22 04:34 AST 28 Units/L (15-37) 06/28/22 04:34 ALT 21 Units/L (12-78) 06/28/22 04:34 Alkaline Phosphatase 76 Units/L (46-116) 06/28/22 04:34 Creatine Kinase 44 Units/L (26-192) 06/26/22 05:20 Troponin I High Sens 14.3 ng/L (4.0-60.0) 06/26/22 05:20 B-Natriuretic Peptide 90.4 pg/mL (0-79) H 06/22/22 15:15 Total Protein 5.4 g/dL (6.4-8.2) L 06/28/22 04:34 Albumin 2.3 g/dL (3.4-5.0) L 06/28/22 04:34 Globulin 3.1 g/dL (2.5-4.5) 06/28/22 04:34 Albumin/Globulin Ratio 0.7 Ratio (1.1-2.1) L 06/28/22 04:34 Specimen Type Catherized urine 06/22/22 18:35 Urine Color Pale yellow (YELLOW) 06/22/22 18:35 Urine Appearance Hazy (CLEAR) 06/22/22 18:35 Urine pH 6.5 (5.0 - 8.0) 06/22/22 18:35 Ur Specific [place] 1.010 (1.000-1.030) 06/22/22 18:35 Urine Protein Negative (NEGATIVE) 06/22/22 18:35 Urine Glucose (UA) Negative (NEGATIVE) 06/22/22 18:35 Urine Ketones Negative (NEGATIVE) 06/22/22 18:35 Urine Blood 2+ (NEGATIVE) 06/22/22 18:35 Urine Nitrite Negative (NEGATIVE) 06/22/22 18:35 Urine Bilirubin Negative (NEGATIVE) 06/22/22 18:35 Urine Urobilinogen Normal (NORMAL) 06/22/22 18:35 Ur Leukocyte Esterase 3+ (NEGATIVE) 06/22/22 18:35 Urine RBC 3-5 /HPF (0-3) A 06/22/22 18:35 Urine WBC 30-50 /HPF (0-5) A 06/22/22 18:35 Ur Squamous Epith Cells Rare /HPF (NEGATIVE) 06/22/22 18:35 Urine Bacteria 1+ /HPF (NEGATIVE) 06/22/22 18:35 Urine Mucus Few /HPF (NEGATIVE) 06/22/22 18:35 Ur Culture Indicated? Yes/culture set up 06/22/22 18:35 Stool Description 10g unformed brown 06/26/22 05:40 Stool for White Cells Positive (NEGATIVE) A 06/26/22 05:40 Stl C. diff Tox B Gene Negative (NEGATIVE) 06/26/22 05:40 Stl C. diff [id number] Presumptive negative (NEGATIVE) 06/26/22 05:40 SARS-CoV-2 (PCR) Negative (NEGATIVE) 06/22/22 16:44 Cryptosporid parvum Ag Negative (NEGATIVE) 06/26/22 05:40 Giardia lamblia Ag Negative (NEGATIVE) 06/26/22 05:40 Influenza Type A (PCR) Negative (NEGATIVE) 06/22/22 16:44 Influenza Type B (PCR) Negative (NEGATIVE) 06/22/22 16:44 RSV (PCR) Negative (NEGATIVE) 06/22/22 16:44 Plan (1) Pneumonia: Status: Acute Qualifiers: Laterality: bilateral Lung location: unspecified part of lung Plan: ROCEPHIN 1G IV DAILY, PULMICORT NEBS BID, XOPENEX NEBS Q6H, LOVENOX 40MG SC DAILY, ZOFRAN 4MG IV Q6H, MAALOX 30ML PO Q4H PRN, COLACE 200MG PO Q12H PRN, MILK OF MAGNESIA 30ML PO Q12H PRN, AND HIS HOME MEDICATIONS WERE RESUMED. (2) Lung mass: Status: Acute (3) Lung nodules: Status: Acute (4) Metastatic disease: Status: Acute Qualifiers: Area of secondary neoplastic involvement: other site Qualified Code(s): C79.89 - Secondary malignant neoplasm of other specified sites (5) Urinary tract infection: Status: Acute Qualifiers: Urinary tract infection type: acute cystitis Hematuria presence: with hematuria Qualified Code(s): N30.01 - Acute cystitis with hematuria Plan: Continue p.o. Augmentin at this time. (6) Hypertension: Status: Chronic Qualifiers: Hypertension type: primary hypertension Qualified Code(s): I10 - Essential (primary) hypertension Narrative Support Text: Patient's blood pressure stable today. (7) KRISTIN (generalized anxiety disorder): Status: Chronic Narrative Support Text: Anxiety stable (8) CHF (congestive heart failure): Status: Chronic Qualifiers: Heart failure type: unspecified Heart failure chronicity: chronic Qualified Code(s): I50.9 - Heart failure, unspecified
[2022-06-28] MEDS: SINGULAIR TAB 10 MG PO SCH (21:10)
[2022-06-28] MEDS: MIRALAX POWDER (1 DOSE 17 G) PO SCH (21:10)
[2022-06-29] MEDS: KLONOPIN TAB 0.5 MG PO SCH (05:20)
[2022-06-29] MEDS: NORCO 10/325 TAB PO PRN (05:21)
[2022-06-29 05:23] LABS: BASOPHILS # (AUTO) 0.1 X10^3/uL (0.0-0.1); BASOPHILS % (AUTO) 1.1 % (0.2-1.0); EOSINOPHILS # (AUTO) 0.2 x10^3/uL (0.0-0.2); EOSINOPHILS % (AUTO) 2.5 % (0.9-2.9); HEMATOCRIT 32.4 % (36.0-47.0); HEMOGLOBIN 11.2 g/dL (12.0-16.0); LYMPHOCYTES # (AUTO) 1.7 X10^3/uL (1.3-2.9); LYMPHOCYTES % (AUTO) 22.8 % (21.0-51.0); MEAN CORPUSCULAR HEMOGLOBIN 32.4 pg (27.0-34.0); MEAN CORPUSCULAR HGB CONC 34.5 g/dL (33.0-35.0); MEAN PLATELET VOLUME 7.2 fL (7.4-11.0); MONOCYTES # (AUTO) 0.8 x10^3/uL (0.3-0.8); MONOCYTES % (AUTO) 10.7 % (0.0-13.0); NEUTROPHILS # (AUTO) 4.7 x10^3/uL (2.2-4.8); NEUTROPHILS % (AUTO) 62.9 % (42.0-75.0); RED BLOOD COUNT 3.45 X10^6/uL (3.5-5.4); RED CELL DISTRIBUTION WIDTH 13.7 % (11.6-16.5); WHITE BLOOD COUNT 7.5 X10^3/uL (3.6-10.0)
[2022-06-29] MEDS: XOPENEX 1.25 MG/3 ML NEBULE NEB SCH ×2 (05:36→06:00)
[2022-06-29 05:40] LABS: ALANINE AMINOTRANSFERASE 29 Units/L (12-78); ALBUMIN 2.6 g/dL (3.4-5.0); ALKALINE PHOSPHATASE 82 Units/L (46-116); ASPARTATE AMINO TRANSFERASE 34 Units/L (15-37); BLOOD UREA NITROGEN 5 mg/dL (7-18); CALCIUM 7.9 mg/dL (8.5-10.1); CARBON DIOXIDE 32.8 mmol/L (21-32); CHLORIDE 97 mmol/L (98-107); CREATININE 0.85 mg/dL (0.55-1.02); SODIUM 133 mmol/L (136-145); eGFR NON BLACK RACES > 60 (>60)
[2022-06-29] MEDS: PULMICORT NEB TX 0.5 MG NEB SCH (08:10)
[2022-06-29 08:11] VITALS: BP 136/89
[2022-06-29] MEDS: LASIX PO SCH (08:22)
[2022-06-29] MEDS: LOVENOX INJ 40 MG SYR SC SCH (08:22)
[2022-06-29] MEDS: ASPIRIN EC 81 MG PO SCH (08:22)
[2022-06-29] MEDS: PROTONIX TAB 40 MG PO SCH (08:23)
[2022-06-29] MEDS: VITAMIN C PO SCH (08:23)
[2022-06-29] MEDS: VITAMIN D3 25 mcg (1,000 UNITS) PO SCH (08:23)
[2022-06-29] MEDS: VITAMIN B-12 PO SCH (08:37)
[2022-06-29] MEDS: AUGMENTIN 875 MG/125 MG TAB PO SCH (08:37)
== END 2022-06-29 11:30 | disposition home health service (06) | DRG 194 ==
LOC: ER 13:17 → ICU 13:17 → OBSVTOIN 17:46 → ICU 18:25
PROVIDERS: ADMIT Internal Medicine; ATTEND Internal Medicine
DX: C79.89 Secondary malignant neoplasm of other specified sites; I10 Essential (primary) hypertension; F41.1 Generalized anxiety disorder; J18.8 Other pneumonia, unspecified organism; Z20.822 Contact with and (suspected) exposure to COVID-19; R91.8 Other nonspecific abnormal finding of lung field; B96.29 Other Escherichia coli [E. coli] as the cause of diseases classified elsewhere; R94.31 Abnormal electrocardiogram [ECG] [EKG]; I50.9 Heart failure, unspecified; N30.01 Acute cystitis with hematuria